=== PATIENT | female | born 1940 | race Caucasian/White ===

== ENCOUNTER 2016-12-22 15:47 | Inpatient (IN) | payer MEDICARE, MEDICAID ==
[~2016-12-22] VITALS: Ht 162.6 cm; Wt 47.5 kg
[~2016-12-22 15:47] MED LIST: ALEN70TA2 PO; ALPR0.254 PO; ATEN50TA PO; CHOL100045 PO; CLOP75TA3 PO; LIT300 PO; LOVA40TA PO; MIRT15TA6 PO; OMEP20CA11 PO; RISP1TAB90 PO; TRAM50TA2 PO
[2016-12-22 15:50] VITALS: BP 152/91; PULSE 88; RESP 16; O2SAT 97
--- NOTE | 2016-12-22 16:25 | ED.REPORT ---
HPI-Psychiatric Illness Date of Service Dec 22, 2016 ED Provider: Mela Ricardo History of Present Illness: have this bipolar, feels scared, maniac with very little sleep. Did well after last hospitalization. meds not working at this time. lives with son. here with sisters who live in concrete also c/o of left side abd pain for 3 days. Nursing Notes Stated Complaint: SEVERE AGITATION, BIPOLAR Chief Complaint: Psychiatric Complaint Nursing Notes Reviewed: Yes Allergies: Coded Allergies: No Known Allergies (Verified Allergy, Unknown, 12/22/16) Scheduled Alendronate Sodium (Fosamax) 70 Mg Tablet 70 MG PO Q Wednesday Alprazolam (Alprazolam) 0.25 Mg Tablet 0.5 MG PO BID Atenolol (Atenolol) 50 Mg Tablet 50 MG PO DAILY Cholecalciferol (Vitamin D3) (Vitamin D) 1,000 Unit Capsule 1,000 UNIT PO DAILY Clopidogrel Bisulfate (Plavix) 75 Mg Tablet 75 MG PO DAILY [employer] Carbonate ([employer] Carbonate) 300 Mg Cap 300 MG PO BID Lovastatin (Lovastatin) 40 Mg Tablet 40 MG PO HS Mirtazapine (Mirtazapine) 15 Mg Tablet 7.5 MG PO HS Omeprazole (Omeprazole) 20 Mg Capsule.dr 20 MG PO DAILY Risperidone (Risperdal) 1 Mg Tablet 0.25 MG PO HS Scheduled PRN Tramadol (Tramadol) 50 Mg Tablet 50 MG PO Q6 PRN PRN For Pain General Time Seen by MD: 16:19 Chief Complaint Anxious, Other (abd pain) Hx Obtained From: Patient Risk-Psychiatric Illness Suicide Risk Stratification Suicide Risk Factors - Adult: : Prior psych admissionNo: Access to firearms, Alcohol use, Close associate suicide, Family Hx of Suicide, Previous attempt, Substance abuse RF Statements: Risk factors reviewed Past Medical History Past Medical History Notes: bi polar Past Medical History Prediabetes Back pain Osteoporosis Allergic rhinitis Actinic keratosis CVD Bipolar disorder Parasomnia Hypertension Thrombocytosis Past Surgical History elbow surgery Reports: Hysterectomy Smoking History Never Smoker Social History Alcohol Use: Denies alcohol use Drug Use: Denies drug use Other Social History: Good social support, Lives with children Occupation lives with son. 12/22/2016 Ambulatory Status Independent Review of Systems Basic Review of Systems Eyes: Vision NL : No dysuria, No frequency Allergy / Immune: No allergy Physical Exam Initial Vital Signs Vital Signs (First) Date Time Temp Pulse Resp B/P Pulse Ox O2 Delivery O2 Flow Rate FiO2 12/22/16 15:50 36.9 88 16 152/91 97 Room Air Initial VS: Reviewed, Vital signs normal Head / Eyes: Atraumatic, Normocephalic, PERRL ENT: Mucous membranes moist, Conjunctiva normal, No scleral icterus Neck: Supple, Non-tender, Full range of motion Respiratory: Breath sounds normal, Clear to auscultation, No respiratory distress Cardiovascular: Regular rate & rhythm, Heart sounds normal, Intact distal pulses Abdomen / GI: Soft, Non-tender, No guarding, No rebound, No distention Back: No CVA tenderness Lymphatic: No lymphadenopathy Extremities: Vascular intact, Neuro intact, No swelling, No tenderness Skin: Warm, Dry, No cyanosis General/Constitutional: Awake, Alert, No acute distress, Well appearing, Well developed Appearance / Presentation: Positive: Appears older than age, Underweight Neurologic: Oriented X3, Speech NL patient with confusion at times Abnormal Mood/Affect: Positive: Fearful, Flat affect Head / Eyes: Atraumatic, Normocephalic, PERRL, EOMI Respiratory / Chest: Atraumatic, Breath sounds NL, Breath sounds = bilat, No respiratory distress Cardiovascular: Heart rate NL, Regular rhythm, Heart sounds NL, No gallop Tenderness/Guarding/Rebound: Positive: Guarding voluntary, Tender LLQ... ( Moderate) Bowel Sounds / Distention: Positive: Bowel sounds hypoactive Interpretation & Diagnostics Interpretation & Diagnostics: PROCEDURE: CT ABDOMEN AND PELVIS WITH CONTRAST ([id number]) INDICATIONS: left side abd pain, wbc of 23 TECHNIQUE: After the administration of oral and intravenous contrast, 5 mm thick sections acquired from the diaphragms to the symphysis. 5 mm thick coronal and sagittal reformats were performed. For radiation dose reduction, the following was used: automated exposure control, adjustment of mA and/or kV according to patient size. COMPARISON: [facility], CT, CT CHEST ABD PELVIS WO CON, 06/09/2016, 13:23. FINDINGS: Image quality: Excellent. ABDOMEN: Lung bases: Lung bases are clear. Heart size is normal. Solid organs: Liver and spleen are normal in size. There is a 50 mm diameter peripheral wedge-shaped low density focus within the posterior inferior spleen, which demonstrates peripheral enhancement. Gallbladder is within normal limits. Biliary system is non-dilated. Pancreas enhances normally. No adrenal nodules. Kidneys are normal in size and enhancement, without hydronephrosis. Peritoneum and bowel: Stomach and small bowel are within normal limits. Appendix is not seen. No evidence of appendicitis. Colon is decompressed. There is diverticulosis of the descending and sigmoid colon. There is moderate thickening of the proximal sigmoid colon. There is moderate fat stranding surrounding the proximal sigmoid colon. There is a 15 mm diameter region of intramural fluid and gas involving the anterior aspect of the proximal sigmoid colon. No free fluid or air. Nodes and vessels: No retroperitoneal or mesenteric adenopathy. Aorta and inferior vena cava are normal in caliber. Miscellaneous: No ventral hernias. PELVIS: Genitourinary: Bladder wall thickness is normal. Miscellaneous: No inguinal hernias or adenopathy. Bones: No suspicious bony lesions. No vertebral body compression fractures. IMPRESSION: 1. Diverticulitis of the proximal sigmoid colon. There is a 15 mm diameter intramural abscess versus fluid filled diverticulum within the proximal sigmoid colon. Conservative therapy with repeat imaging, if clinically warranted is recommended for further assessment. 2. Probable posterior inferior splenic infarct. However, given the peripheral enhancement, evolving abscess may also be present. Close clinical followup is recommended, with repeat imaging, if clinically warranted. Dictated by: Rolanda Hebert M.D. on 12/22/2016 at 20:43 Approved by: Rolanda Hebert M.D. on 12/22/2016 at 20:48 Lab Results Interpretation Result Diagram: 12/22/16 1700 12/22/16 1700 Test 12/22/16 17:00 12/22/16 17:27 12/22/16 17:47 White Blood Count 23.1th/mm3 (3.8-10.1) Red Blood Count 4.92mil/mm3 (3.90-5.20) Hemoglobin 14.4g/dL (12.0-15.6) Hematocrit 44.7% (35.0-46.0) Mean Corpuscular Volume 90.9fL (81-100) Mean Corpuscular Hemoglobin 29.3pg (27.0-35.0) Mean Corpuscular Hemoglobin Concent 32.2% (32.0-37.0) Red Cell Distribution Width 15.5% (12.3-15.4) Platelet Count 1022bil/L (150-400) Neutrophils (%) (Auto) 76% (40-74) Lymphocytes (%) (Auto) 14% (14-46) Monocytes (%) (Auto) 5% (4-12) Eosinophils (%) (Auto) 1% (0-5) Basophils (%) (Auto) 2% (0-3) Band Neutrophils % 2% (1-5) Sodium Level 137mEq/L (134-144) Potassium Level 4.6mEq/L (3.5-5.2) Chloride Level 101mEq/L (97-108) Carbon Dioxide Level 22mmol/L (18-29) Blood Urea Nitrogen 24mg/dL (8-27) Creatinine 0.89mg/dL (0.57-1.00) Estimat Glomerular Filtration Rate 89mL/min (>59) Glucose Level 117mg/dL (60-99) Lactic Acid Level 0.7mmol/L (0.4-2.0) Calcium Level 10.5mg/dL (8.5-10.1) Total Bilirubin 0.3mg/dL (0.0-1.2) Aspartate Amino Transf (AST/SGOT) 90U/L (0-50) Alanine Aminotransferase (ALT/SGPT) 82U/L (0-32) Alkaline Phosphatase 75U/L (25-165) Total Protein 7.7g/dL (6.4-8.4) Albumin 4.6g/dL (3.4-5.0) Thyroid Stimulating Hormone (TSH) 1.380uIU/mL (0.450-4.500) Hold Tse Top Tube Received (Received) Hold Urine Received (Received) Urine Color Yellow (YELLOW) Urine Appearance Clear (CLEAR,HAZY) Urine pH 5.5 (5.0-8.0) Urine Specific [place] 1.020 (1.003-1.035) Urine Protein Negativemg/dL (NEG,TRACE) Urine Glucose (UA) Negativemg/dL (NEGATIVE) Urine Ketones Negativemg/dL (NEGATIVE) Urine Occult Blood Small (NEGATIVE) Urine Nitrite Negative (NEGATIVE) Urine Bilirubin Negative (NEGATIVE) Urine Urobilinogen Normalmg/dL (NORMAL) Urine Leukocyte Esterase Negative (NEGATIVE) Urine RBC 3-10/hpf (0-2) Urine WBC 0-5/hpf (0-5) Urine Epithelial Cells Moderate/hpf (NONE-MOD) Urine Crystals None seen (NONE SEEN) Urine Bacteria Few/hpf (NONE-FEW) Urine Hyaline Casts None/lpf (NONE) Urine Granular Casts None seen (NONE SEEN) Urine Waxy Casts None seen (NONE SEEN) Urine Red Blood Cell Casts None seen (NONE SEEN) Urine White Blood Cell Casts None seen (NONE SEEN) Urine Mucus Present (None Seen) Urine Trichomonas None seen (NONE SEEN) Urine Yeast None (NONE SEEN) Urinalysis Comment None Urine Culture Reflexed Not indicated X-Ray Chest Interpretation Chest Xray Interpretation: ROCEDURE: X-RAY CHEST, TWO VIEWS ([id number]) INDICATIONS: altered mental status TECHNIQUE: 2 views of the chest were acquired. COMPARISON: [facility], CR, XR CHEST 2VW, 07/24/2016, 13:54. FINDINGS: Surgical changes and devices: None. Lungs and pleura: No pleural effusions or pneumothorax. Mild patchy opacity at the left lung base. Mediastinum: Mediastinal contours are normal. Heart size is normal. Bones and chest wall: No suspicious bony abnormalities. Soft tissues appear unremarkable. IMPRESSION: Mild left lung base pneumonia. Follow up plain films of the chest are recommended to ensure resolution, and to exclude underlying or central malignancy. Dictated by: Rolanda Hebert M.D. on 12/22/2016 at 18:21 Approved by: Rolanda Hebert M.D. on 12/22/2016 at 18:21 CT Head Interpretation PROCEDURE: CT BRAIN WITHOUT CONTRAST ([id number]) INDICATIONS: alter mental status wbc 23 TECHNIQUE: Noncontrast 4.5 mm thick angled axial sections acquired from the foramen magnum to the vertex, with coronal reformats. COMPARISON: [facility], CT, CT BRAIN WO CON, 05/20/2016, 12:28. FINDINGS: Image quality: Excellent. CSF spaces: Basal cisterns are patent. No extra-axial fluid collections. The ventricles are symmetric in size and shape. Brain: No intracranial bleeds or masses. Moderate left anterolateral frontal lobe infarct is unchanged. There is cerebral volume loss for age, with resultant ventricular and sulcal prominence. There are periventricular and deep white matter chronic small vessel ischemic changes. There is intracranial internal carotid artery atherosclerosis. Skull and face: Calvarium and visualized facial bones appear intact, without suspicious lesions. Sinuses: Visualized sinuses and mastoids are clear. IMPRESSION: 1. No acute intracranial abnormality. 2. No change in chronic left frontal infarct. Dictated by: Rolanda Hebert M.D. on 12/22/2016 at 18:00 Approved by: Rolanda Hebert M.D. on 12/22/2016 at 18:00 Re-Eval/Medical Decision Med Decision/Clinical Course 76 year old female presents with her sisters for evualation of mental health issues and left abd pain. White count of 23. CT shows divertulitis Care of patient turned over to Dr. Salazar Discharge & Departure Impression: Primary Impression: Diverticulitis Diverticulitis site: large intestine Diverticulitis complication: with abscess Disposition: ADMITTED TO HOSPITAL Referrals: Ga Mills MD (PCP) EDSupervising Provider for APC: Ramiro Salazar MD copies to: Ga Mills MD, Sue ARNP Dec 22, 2016 16:25
[2016-12-22 17:38] LABS: Mean Corpuscular Hemoglobin 29.3 pg (27.0-35.0); Mean Corpuscular Volume 90.9 fL (81-100)
[2016-12-22 17:39] LABS: BASOPHILS % (AUTO) 2 % (0-3); EOSINOPHILS % (AUTO) 1 % (0-5); MONOCYTES % (AUTO) 5 % (4-12); NEUTROPHILS % (AUTO) 76 % (40-74)
[2016-12-22 17:41] LABS: Platelet Count 1022 bil/L (150-400)
[2016-12-22] MEDS ORDERED: 0.9% Sodium Chloride 1,000 ML IV ONE (17:50)
--- NOTE | 2016-12-22 18:02 | DRSVH ---
PROCEDURE: CT BRAIN WITHOUT CONTRAST ([id number]) INDICATIONS: alter mental status wbc 23 TECHNIQUE: Noncontrast 4.5 mm thick angled axial sections acquired from the foramen magnum to the vertex, with c oronal reformats. COMPARISON: [facility], CT, CT BRAIN WO CON, 05/20/2016, 12:28. FINDINGS: Image quality: Excellent. CSF spaces: Basal cisterns are patent. No extra-axial fluid collections. The ventricles are symmet luiz in size and shape. Brain: No intracranial bleeds or masses. Moderate left anterolateral frontal lobe infarct is unchan ged. There is cerebral volume loss for age, with resultant ventricular and sulcal prominence. There are periventricular and deep white matter chronic small vessel ischemic changes. There is intracrani al internal carotid artery atherosclerosis. Skull and face: Calvarium and visualized facial bones appear intact, without suspicious lesions. Sinuses: Visualized sinuses and mastoids are clear. IMPRESSION: 1. No acute intracranial abnormality. 2. No change in chronic left frontal infarct. Dictated by: Rolanda Hebert M.D. on 12/22/2016 at 18:00 Approved by: Rolanda Hebert M.D. on 12/22/2016 at 18:00
[2016-12-22 18:11] LABS: COLOR,URINE YELLOW (YELLOW)
[2016-12-22 18:12] LABS: APPEARANCE,URINE CLEAR (CLEAR,HAZY); OCCULT BLOOD,URINE SMALL (NEGATIVE); PH,URINE 5.5 (5.0-8.0); UROBILINOGEN,URINE NORMAL (NORMAL)
--- NOTE | 2016-12-22 18:22 | DRSVH ---
PROCEDURE: X-RAY CHEST, TWO VIEWS ([id number]) INDICATIONS: altered mental status TECHNIQUE: 2 views of the chest were acquired. COMPARISON: [facility], CR, XR CHEST 2VW, 07/24/2016, 13:54. FINDINGS: Surgical changes and devices: None. Lungs and pleura: No pleural effusions or pneumothorax. Mild patchy opacity at the left lung base. Mediastinum: Mediastinal contours are normal. Heart size is normal. Bones and chest wall: No suspicious bony abnormalities. Soft tissues appear unremarkable. IMPRESSION: Mild left lung base pneumonia. Follow up plain films of the chest are recommended to ensu re resolution, and to exclude underlying or central malignancy. Dictated by: Rolanda Hebert M.D. on 12/22/2016 at 18:21 Approved by: Rolanda Hebert M.D. on 12/22/2016 at 18:21
[2016-12-22 18:40] VITALS: BP 118/74; PULSE 74; RESP 14; O2SAT 96
[2016-12-22] MEDS ORDERED: Iohexol 300 mg/mL 30 mL Inj PO ONE (19:05)
--- NOTE | 2016-12-22 20:50 | DRSVH ---
PROCEDURE: CT ABDOMEN AND PELVIS WITH CONTRAST ([id number]) INDICATIONS: left side abd pain, wbc of 23 TECHNIQUE: After the administration of oral and intravenous contrast, 5 mm thick sections acquired from the diap hragms to the symphysis. 5 mm thick coronal and sagittal reformats were performed. For radiation do se reduction, the following was used: automated exposure control, adjustment of mA and/or kV accordi ng to patient size. COMPARISON: [facility], CT, CT CHEST ABD PELVIS WO CON, 06/09/2016, 13:23. FINDINGS: Image quality: Excellent. ABDOMEN: Lung bases: Lung bases are clear. Heart size is normal. Solid organs: Liver and spleen are normal in size. There is a 50 mm diameter peripheral wedge-shaped low density focus within the posterior inferior spleen, which demonstrates peripheral enhancement. G allbladder is within normal limits. Biliary system is non-dilated. Pancreas enhances normally. No adrenal nodules. Kidneys are normal in size and enhancement, without hydronephrosis. Peritoneum and bowel: Stomach and small bowel are within normal limits. Appendix is not seen. No santana dence of appendicitis. Colon is decompressed. There is diverticulosis of the descending and sigmoid c olon. There is moderate thickening of the proximal sigmoid colon. There is moderate fat stranding mila rounding the proximal sigmoid colon. There is a 15 mm diameter region of intramural fluid and gas inv olving the anterior aspect of the proximal sigmoid colon. No free fluid or air. Nodes and vessels: No retroperitoneal or mesenteric adenopathy. Aorta and inferior vena cava are no rmal in caliber. Miscellaneous: No ventral hernias. PELVIS: Genitourinary: Bladder wall thickness is normal. Miscellaneous: No inguinal hernias or adenopathy. Bones: No suspicious bony lesions. No vertebral body compression fractures. IMPRESSION: 1. Diverticulitis of the proximal sigmoid colon. There is a 15 mm diameter intramural abscess versus fluid filled diverticulum within the proximal sigmoid colon. Conservative therapy with repeat imaging , if clinically warranted is recommended for further assessment. 2. Probable posterior inferior splenic infarct. However, given the peripheral enhancement, evolving a bscess may also be present. Close clinical followup is recommended, with repeat imaging, if clinicall y warranted. Dictated by: Rolanda Hebert M.D. on 12/22/2016 at 20:43 Approved by: Rolanda Hebert M.D. on 12/22/2016 at 20:48
[2016-12-22] MEDS ORDERED: metroNIDAZOLE Inj 500 MG in IV Premix 1 EACH IV ONE (21:05)
[2016-12-22] MEDS ORDERED: Piperacillin-Tazo 3.375 Gm Inj 3.375 GM in Dextrose 5% Minibag Plus 50 ML IV ONE (21:05)
[2016-12-22] MEDS ORDERED: ALPR0.5T8 PO ×2 (22:01→22:04)
[2016-12-22] MEDS ORDERED: MIRT7.5T8 PO (22:04)
[2016-12-22] MEDS ORDERED: Ondansetron 2 mg/mL 2 mL Inj IVPUSH PRN (22:05)
[2016-12-22] MEDS ORDERED: Alum-Mag Hydrox-Simeth 30 mL Suspension PO PRN (22:05)
[2016-12-22] MEDS ORDERED: Polyethylene Glycol (PEG) 17 Gm Powder PO PRN (22:05)
--- NOTE | 2016-12-22 22:14 | PCM.HPMED ---
Subjective Date of Service Dec 22, 2016 Primary Provider: Admitting Physician: Primary Care Physician: Ga Mills MD Attending Physician: Admit Status: From the Emergency Department, Remote Telemetry Chief Complaint: Episodes of mariaa, left lower quadrant abdominal pain History of Present Illness: Ms. Perez is a pleasant 76-year-old female with history of bipolar disorder on long-term lithium use, thrombocytosis, and hypertension, that presented to [facility] with a 3 week history of increased insomnia, mariaa, and irritability, in addition to a three-day history of left lower quadrant abdominal pain without associated fever, chills, nausea, vomiting. She was noted to have an elevated white count in the ED, stat CT imaging revealed diverticulitis of the proximal sigmoid colon. She was admitted for evaluation and treatment of ongoing psychiatric issues, and addition to antibiotic therapy to address her diverticulitis. Hospital day 1 Ms. Perez's family is present at bedside, and note that the patient has been irritable, sleepless, and experiencing a mariaa episode over the recent 3 weeks. The patient states that her family brought her in with concerns of her psychiatric health. Patient states she has been increasingly anxious over the recent weeks. She denies any fever, chills, nausea, vomiting, diarrhea, constipation, blood within her stools or urine, shortness of breath, palpitations. She does note a few days prior to admission, she was experiencing constipation, of which, she took [id number] laxatives for therapy. She shares that she has been experiencing left lower quadrant abdominal pain over the recent 3 days prior to this admission, with pain extending to her left lower back. She does state she has a history of diverticulitis many years ago, but did not require hospitalization. Other than her bipolar disorder, she reports she is in relatively good health for her age, and is able to do most activities on her own without assistance. In regard to her psychiatric issue, she was recently seen at [facility] June 2016 under the care of Dr. Owens. Patient and family confirm that patient has been compliant with her medications, has not run out of any medications, and is adhered to the original schedule. In the ED, T 36.9, pulse 88, respiratory rate 16, pressure 152/91, 97% on room air; initial labs revealed WBC 23.1 with 76 neut, hemoglobin 14.4, platelets 1022; sodium 137, potassium 4.6, creatinine 0.89, lactic acid 0.7, AST 90 ALT 82 ; lithium level obtained 0.6; UA obtained which revealed small occult blood, negative leukocyte esterase and negative nitrites, moderate epithelial cells were noted with few bacteria. Blood cultures were also obtained and sent to lab. 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 ; CT abdomen and pelvis with contrast revealed a normal appearing liver and spleen, no evidence cholecystitis, no evidence of appendicitis, diverticulosis was noted of the descending and sigmoid colon with moderate thickening of the proximal sigmoid colon and associated moderate fat stranding surrounding the proximal sigmoid colon, in addition there was a 15 mm diameter region of intramural fluid and gas involving the anterior aspect of the proximal sigmoid colon, all of these findings were suggestive of diverticulitis, and other finding included probable posterior inferior splenic infarct but this was also thought to be evidence of an evolving abscess. Initial therapies included Zosyn and Flagyl, in addition to Ativan 1 L bolus normal saline. Patient was seen in the emergency department in stable condition awaiting transfer to floor. Review of Systems: Complete our was obtained; pertinent positives and negatives as noted above Allergies Coded Allergies: No Known Allergies (Verified Allergy, Unknown, 12/22/16) Home Medications Medications list provided by patient and family: Alendronate 70 mg weekly Alprazolam 0.5 mg twice daily scheduled, with approved third dose if needed for increased anxiety Atenolol 50 mg daily Plavix 75 mg daily [place] 300 mg twice daily Lovastatin 40 mg nightly Mirtazapine 7.5 mg at bedtime Risperidone 0.25 mg at bedtime Tramadol 50 mg every 6 hours as needed Vitamin D3 These medications will be continued at this time until evaluation by psychiatric service PMH Prediabetes Back pain Osteoporosis Allergic rhinitis Actinic keratosis CVD Bipolar disorder Parasomnia Hypertension Thrombocytosis Surgical History elbow surgery Reports: Hysterectomy Family History She notes that her brother had an intracranial bleed Social History Hx Alcohol Use: No Hx Substance Use: No Hx Tobacco Use: No Smoking Status: Never Smoker Living Arrangement: with Family Exam Vital Signs Vital Sign - Last Date Time Temp Pulse Resp B/P Pulse Ox O2 Delivery O2 Flow Rate FiO2 12/22/16 18:40 74 14 118/74 96 Room Air 12/22/16 15:50 36.9 Exam General: Alert and oriented 3, no acute distress; cooperative and pleasant HEENT: Atraumatic, sclera anicteric, no conjunctival hemorrhage or pallor, mucous membranes moist Cardiac: Regular rate and rhythm at time of examination; no appreciable murmurs Respiratory: Adequate airflow all jimenez, no wheeze or rhonchi appreciated Abdomen: Soft, nondistended; tenderness appreciated left lower quadrant with radiation to left flank; no epigastric, left upper quadrant, right-sided abdominal pain appreciated Skin: Warm and dry MSK: Able to move 44 extremities against gravity well; no assistance required Extremities: No edema appreciated Neuro: Cranial nerves II through XII grossly intact, facial expressions equal and symmetric; speech without slurring Psych: Appropriate mood, affect, and response to questioning; patient was quite pleasant and calm at time of evaluation Lab and Diagnostics Result Diagram: 12/22/16169912/22/161699 Assessment & Plan Ms. Perez is a pleasant 76-year-old female with history of bipolar disorder on long-term lithium use, thrombocytosis, and hypertension, that presented to [facility] with a 3 week history of increased insomnia, mariaa, and irritability, in addition to a three-day history of left lower quadrant abdominal pain without associated fever, chills, nausea, vomiting. She was noted to have an elevated white count in the ED, stat CT imaging revealed diverticulitis of the proximal sigmoid colon. She was admitted for evaluation and treatment of ongoing psychiatric issues, and addition to antibiotic therapy to address her diverticulitis. Hospital day 1 Diverticulitis, acute, present on admission. Under therapy - Afebrile; patient reports left lower quadrant pain in addition to WBC 23.1 on admit - CT findings suggestive of diverticulitis - In the ED, given Zosyn and Flagyl - Continue Zosyn as sole agent at this time - Monitor; consider surgical consultation if no improvement Thrombocytosis, chronic, present on admission. 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 Presumed unstable - [place] level on admit: 0.6; no evidence of kidney disease based on labs on admission - Patient and family report recent increase in mariaa symptoms over recent 3 weeks - Consider psychiatric consultation in morning/as patient stabilizes medically, as it is psychiatric concerns that brought patient into the hospital initially - We will continue current psychiatric medications at this time Hypertension, chronic. Presumed stable Continue home medications Osteoporosis, chronic. Presumed stable - Patient on weekly alendronate schedule When necessary: Fever/pain/nausea/bowel DVT: SCDs only at this time GI: PPI Diet: Liquids at this time CODE STATUS: Full code Patient status: Due to severity of presenting symptoms, risk of adverse events, and likely course of care, anticipated length of stay exceeds 2 midnights; patient admitted as inpatient status Pain Evaluation: Adequate Pain Control GI Prophylaxis: Proton Pump Inhibitor VTE Prophylaxis: SCDs Resuscitation Status: CPR: Attempt Resuscitation Attending Statement The patient was seen and examined together with Dr. García on 12/22 and I agree with the history, exam and plan as outlined in the note above. Marina García DO Dec 22, 2016 22:13 Ignacio Norman MD Dec 23, 2016 01:30
[2016-12-22] MEDS ORDERED: ALPRAZolam 0.5 mg Tablet PO PRN (22:30)
[2016-12-22] MEDS ORDERED: risperiDONE 1 mg Tablet PO ONE (22:30)
[2016-12-23] VITALS (7 sets, daily range): BP systolic 94–158; BP diastolic 59–93; PULSE 63–80; RESP 16–20; O2SAT 93–97
[2016-12-23] MEDS: ALPRAZolam 0.5 mg Tablet PO SCH ×3 (00:40→20:51)
[2016-12-23] MEDS: 0.9% Sodium Chloride 1,000 ML IV SCH ×3 (00:40→17:20)
--- NOTE | 2016-12-23 00:57 | NUR ---
Admission Pt pleasant and cooperative. C/o left lower abdominal pain rated at a 4 "If I push on it". Refuses tylenol for pain and states, "I'm fine". C/O being cold. Anxious about not "sleeping" Given warm blankets. Given evening scheduled medication. KAJAL alarm on for safety. Will cont to monitor
[2016-12-23] MEDS: Pantoprazole 20 mg ER24 Tablet PO SCH (06:39)
[2016-12-23 07:16] LABS: BASOPHILS % (AUTO) 0.4 % (0-3); EOSINOPHILS % (AUTO) 1.4 % (0-5); MONOCYTES % (AUTO) 10.6 % (4-12); Mean Corpuscular Hemoglobin 29.5 pg (27.0-35.0); Mean Corpuscular Volume 91.6 fL (81-100); NEUTROPHILS % (AUTO) 71.1 % (40-74); Platelet Count 838 bil/L (150-400)
[2016-12-23] MEDS: Piperacillin-Tazo 3.375 Gm Inj 3.375 GM in Dextrose 5% Minibag Plus 50 ML IV SCH ×2 (07:52→17:17)
[2016-12-23 08:08] LABS: Magnesium 2.2 mg/dL (1.6-2.6); Phosphorus 3.7 mg/dL (2.5-4.9)
--- NOTE | 2016-12-23 14:08 | NUR ---
Social Work-initial assessment: Data:See initial assessment. Pt is a 76 y/o female who was admitted on 12/22/16 for diverticulitis per H&P. Pt's insurance is [employer] and [facility] and PCP is Ga Mills MD. EMR reviewed. SW met with pt at bedside to discuss discharge planning, SW role explained. Pt is alert and oriented x3. Pt resides at home with her son Alcon where she remains independent with ADLs. Pt does not use any DME and drives. Pt has no HH or SNF history. Pt has no [facility] care insurance or VA benefits. SW discussed DPOA/ advanced directive and pt confirms this has been completed. Pt has [facility] and her CM is Marlo Salinas, SW spoke with Marlo who confirms pt has 76 hours a month, updated clinicals faxed. Pt states she is not enrolled with a counselor or a community psychiatrist. Pt states her PCP prescribes her psych medications and she takes them regularly. Pt states lately she has been feeling more anxious and hopes she will get to see the psychiatrist here at the hospital. SW explained that MD state she is going to put in a consult. Pt denies any current suicide ideation and states she does not believe in suicide due to her cheondoism rhiannon. Pt's son to provide transport home. SW provided phone number and plan on white board in room. SW will continue to follow. Assessment:Pt who is independent at baseline. Plan:Pt to discharge home when medically stable. Pt to continue with [facility] caregiving. Psychiatry consult is pending. SW to follow up post evaluation for any discharge needs. SW will continue to follow. HERMILA Franklin Addendum: 12/23/16 at 1417 by ROGELIO LEWIS Amended: Links added.
--- NOTE | 2016-12-23 15:08 | PCM.PNMED ---
Subjective Date of Service Dec 23, 2016 Subjective Denies any new issues/complaints. Continued left lower abdominal pain Exam Vital Signs Vital Sign - Last Date Time Temp Pulse Resp B/P Pulse Ox O2 Delivery O2 Flow Rate FiO2 12/23/16 11:53 36.7 63 18 108/70 96 Room Air Intake and Output 12/22/16 12/22/16 12/23/16 Cumulative From/Thru 15:00 23:00 07:00 12/22/16 15:50 - 12/23/16 06:00 Intake Total 638 ml 638 ml Output Total 620 ml 620 ml Balance 18 ml 18 ml Intake Oral 200 ml 200 ml IV Total 438 ml 438 ml Output Urine Total 620 ml 620 ml General: Alert, Cooperative, No Acute Distress Eyes: Scleral Anicteric Nose: Mucous Membr Moist/[place] Mouth: Mucous Membr Moist/[place] Neck: Supple Chest & Lungs: Chest Wall Normal, Clear to auscultation & percussion Cardiovascular: Regular Rate/Rhythm Abdomen: Tender (at left lower abd), Non-distended, Soft Extremities: No cyanosis/clubbing/edma bilat Neurological: Grossly Neurologically Intact, Cranial Nerves 2-12 Intact, Normal Speech Additional Information: Psych: appropriate affect IVs and Medications Medications Reviewed: Medications were reviewed in detail Lab and Diagnostics Result Diagram: 12/23/16 0659 12/23/16 0659 Assessment & Plan 76-year-old female with history of bipolar disorder on long-term lithium use, thrombocytosis, and hypertension, that presented to [facility] with a 3 week history of increased insomnia, mariaa, and irritability, in addition to a three-day history of left lower quadrant abdominal pain without associated fever, chills, nausea, vomiting. She was noted to have an elevated white count in the ED, stat CT imaging revealed diverticulitis of the proximal sigmoid colon. # Diverticulitis, acute, present on admission. Under therapy - CT abd: "Diverticulitis of the proximal sigmoid colon. There is a 15 mm diameter intramural abscess versus fluid filled diverticulum within the proximal sigmoid colon. Conservative therapy with repeat imaging, if clinically warranted is recommended for further assessment." - In the ED, given Zosyn and Flagyl - Continue Zosyn as sole agent at this time - Monitor; consider surgical consultation if no improvement # CT Abdomen also showing: "Probable posterior inferior splenic infarct. However , given the peripheral enhancement, evolving abscess may also be present. Close clinical followup is recommended, with repeat imaging, if clinically warranted. " # Thrombocytosis, acute on chronic, present on admission. 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 Presumed unstable - [place] level on admit: 0.6; no evidence of kidney disease based on labs on admission - Patient and family report recent increase in mariaa symptoms over recent 3 weeks - Consult psychiatry - We will continue current psychiatric medications at this time # Hypertension, chronic. stable - Continue home medications # Osteoporosis, chronic. Presumed stable - Patient on weekly alendronate schedule Dispo: 2-4 days GI Prophylaxis: Proton Pump Inhibitor VTE Prophylaxis: SCDs VTE Mechanical Devices: Intermittant Pneumatic CD Resuscitation Status: CPR: Attempt Resuscitation Cecil Cantu Dec 23, 2016 15:08
[2016-12-23] MEDS: risperiDONE 1 mg Tablet PO SCH (20:51)
[2016-12-24] MEDS: Piperacillin-Tazo 3.375 Gm Inj 3.375 GM in Dextrose 5% Minibag Plus 50 ML IV SCH ×3 (01:31→17:03)
[2016-12-24] MEDS: 0.9% Sodium Chloride 1,000 ML IV SCH ×2 (04:01→14:01)
[2016-12-24 05:20] VITALS: BP 115/73; PULSE 71; RESP 16; O2SAT 95
[2016-12-24] MEDS: Pantoprazole 20 mg ER24 Tablet PO SCH (05:53)
[2016-12-24 06:09] LABS: BASOPHILS % (AUTO) 0.6 % (0-3); EOSINOPHILS % (AUTO) 2.6 % (0-5); MONOCYTES % (AUTO) 10.2 % (4-12); Mean Corpuscular Hemoglobin 29.7 pg (27.0-35.0); Mean Corpuscular Volume 92.4 fL (81-100); NEUTROPHILS % (AUTO) 63.3 % (40-74); Platelet Count 881 bil/L (150-400)
--- NOTE | 2016-12-24 07:26 | NUR ---
Abdominal pain Patient continues to have diarrhea this shift. Patient states her left side abdominal pain has increased slightly this shift and was given Tramadol for pain. Patient stated she has anxiety about being closed off in her room. Curtains were opened and patient was told that we would take her for a walk later in the shift. Patient stated that she appreciated these efforts, but changed her mind about the walk after taking her evening medications. Patient up independent in room. Vitals stable.
[2016-12-24] MEDS: ALPRAZolam 0.5 mg Tablet PO SCH (09:09)
[2016-12-24 09:25] VITALS: BP 123/76; PULSE 84; RESP 18; O2SAT 96
--- NOTE | 2016-12-24 11:59 | NUR ---
Nausea / Anxiety Pt c/o nausea at the beginning of the shift today; no vomiting. Administered 4 mg IVP Zofran. Pt later reported that this helped; nausea resolved. Pt also was feeling anxious this a.m. She has many thoughts and worries running through her head (her health, her family). She has expressed concern about her mental health and wonders if psychological counseling would help her. Hospitalist has requested a psychological consult. Advised pt of this and also administered her scheduled Xanax. Pt later reported that the Xanax helped reduce her anxiety. Also assisted pt in ambulating in the hallway. Pt said this made her feel better. Care continues.
[2016-12-24 12:11] VITALS: BP 135/80; PULSE 74; RESP 18; O2SAT 97
--- NOTE | 2016-12-24 15:06 | CONS ---
[address] [address] CONSULTATION REPORT PATIENT: ALEC STRATTON : 1940 MR#: [id number] ADMIT: 12/22/2016 JOB ID: [id number] DATE OF SERVICE: IDENTIFICATION OF PATIENT: The patient is a 76-year-old female who reportedly was admitted with acute diverticulosis, with noted previous history of bipolar disorder, recent hospitalization to the mental health unit in June 2016. Per family report, the patient has had increasing difficulties with possible mariaa over the past month, and I had met and confirmed with both sisters. CHIEF COMPLAINT: "I have not felt as good and know that there is something that is off." This is per patient report. HISTORY OF PRESENT ILLNESS: As stated above, the patient identified that over the past month she has been experiencing difficulties with perseverative thoughts, difficulties with rigid thinking, agitation, some difficulties with overwhelming sensations, racing thoughts and panic. She identifies that she has not been sleeping more than 2-3 hours per night. Per family report, they have expressed significant concern of recent decompensation over the past month as well. They indicated that she just has not been following or tracking information. I have reviewed documentation from her previous hospitalization in June with noted diagnoses including bipolar disorder, most recent episode depressed, rule out vascular dementia. She reportedly was discharged at that time on: 1. [place] carbonate ER 300 mg b.i.d. 2. Xanax 0.5 mg b.i.d. 3. Remeron 7.5 mg q.h.s., with a lithium level at 0.9. I have reviewed documentation of current including a lithium level of 0.6 with current administration of: 1. [place]ow carbonate standard. 2. Current administration of similar doses of: a. Risperdal 0.25 mg q.h.s. b. Xanax 0.5 mg b.i.d. c. Remeron 7.5 mg at h.s. Discussed possibility of transitioning of lithium as a causative factor in her current presentation and do feel that the patient warrants an extended release mechanism for stabilization. In addition, I have discussed a possible initiation of Klonopin versus Xanax due to longevity of response, and the patient is open to such. PAST MEDICAL HISTORY: Noted for current presentation of diverticulosis, significant history of hypertension. Other medical history is referred to the Hospitalist team. PAST PSYCHIATRIC HISTORY: Noted for a long-term history of bipolar disorder. Most recent hospitalization in June 2016. SOCIAL HISTORY: Currently, the patient lives in a trailer with her son who also suffers from mental illness per report. She denies any recent usage of alcohol substances. FAMILY HISTORY: Deferred. DEVELOPMENT HISTORY: Deferred. MENTAL STATUS EXAMINATION: General appearance, the patient is bright, cooperative, interactive. She maintains good eye contact throughout. She apologizes throughout the course of conversation. Her speech is of normal tone, frequency and volume. Her mood is anxious. Affect is elevated. Her thought process shows evidence of some racing thoughts, loose and disconnected thinking. Thought content, she denied any evidence of current suicidal or homicidal ideation. No evidence of active hallucinations or delusions. She was alert, oriented to time and place. Attention and concentration are poor. Insight and judgment are poor. IMPRESSIONS: AXIS I 1. Bipolar disorder, most recent episode manic. 2. Rule out dementia, not otherwise specified. AXIS II Deferred. AXIS III Deferred to the Hospitalist team. AXIS IV Stressors are noted for recent life transition. AXIS V Global Assessment of Functioning current 45. PLAN: 1. Recommendation is for discontinuation of doses of Xanax with alternative institution of Klonopin 1 mg b.i.d. If the patient does have significant adverse side effects including sedation or orthostasis, decreasing dose further to 0.5 mg b.i.d. would be thakkar. 2. Recommendation is for change of format of lithium to lithium ER versus standard due to depressed levels of 0.9 to 0.6. 3. Continuation of Risperdal 0.25 mg q.h.s. and dose of Remeron 7.5 mg q.h.s. 4. Recommendation is for strong encouragement of further psychiatric followup. Will be discussed with the family. I do feel that the patient does warrant psychiatric prescriber intervention versus primary care, if available.
--- NOTE | 2016-12-24 15:21 | PCM.PNMED ---
Subjective Date of Service Dec 24, 2016 Subjective Denies any new issues/complaints. left lower abdominal pain improving Exam Vital Signs Vital Sign - Last Date Time Temp Pulse Resp B/P Pulse Ox O2 Delivery O2 Flow Rate FiO2 12/24/16 12:11 36.7 74 18 135/80 97 Room Air Intake and Output 12/23/16 12/23/16 12/24/16 Cumulative From/Thru 15:00 23:00 07:00 12/22/16 15:50 - 12/24/16 06:51 Intake Total 762 ml 876 ml 400 ml 2676 ml Output Total 1900 ml 600 ml 3120 ml Balance 762 ml -1024 ml -200 ml -444 ml Intake Oral 876 ml 400 ml 1476 ml IV Total 762 ml 1200 ml Output Urine Total 1900 ml 600 ml 3120 ml # Bowel Movements 2 2 4 Exam General: Alert, Cooperative, No Acute Distress Eyes: Scleral Anicteric Nose: Mucous Membr Moist/[place] Mouth: Mucous Membr Moist/[place] Neck: Supple Chest & Lungs: Chest Wall Normal, Clear to auscultation bilat Cardiovascular: Regular Rate/Rhythm Abdomen: Tender (mild and at left lower abd), Non-distended, Soft Extremities: No cyanosis/clubbing/edema bilat Neurological: Grossly Neurologically Intact, Cranial Nerves 2-12 Intact, Normal Speech Psych: appropriate affect IVs and Medications Medications Reviewed: Medications were reviewed in detail Lab and Diagnostics Result Diagram: 12/24/16 0505 12/24/16 0505 Assessment & Plan 76-year-old female with history of bipolar disorder on long-term lithium use, thrombocytosis, and hypertension, that presented to [facility] with a 3 week history of increased insomnia, mariaa, and irritability, in addition to a three-day history of left lower quadrant abdominal pain without associated fever, chills, nausea, vomiting. She was noted to have an elevated white count in the ED, stat CT imaging revealed diverticulitis of the proximal sigmoid colon. # Diverticulitis, acute, present on admission. Under therapy - CT abd: "Diverticulitis of the proximal sigmoid colon. There is a 15 mm diameter intramural abscess versus fluid filled diverticulum within the proximal sigmoid colon. Conservative therapy with repeat imaging, if clinically warranted is recommended for further assessment." - In the ED, given Zosyn and Flagyl - Continue Zosyn as sole agent at this time - Monitor; consider surgical consultation if no improvement # CT Abdomen also showing: "Probable posterior inferior splenic infarct. However , given the peripheral enhancement, evolving abscess may also be present. Close clinical followup is recommended, with repeat imaging, if clinically warranted. " # Thrombocytosis, acute on chronic, present on admission. 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 Presumed unstable - [place] level on admit: 0.6; no evidence of kidney disease based on labs on admission - Patient and family report recent increase in mariaa symptoms over recent 3 weeks - Consulted psychiatry. Will followup with recommendations. # Hypertension, chronic. stable - Continue home medications # Osteoporosis, chronic. Presumed stable - Patient on weekly alendronate schedule Dispo: 2-3 days GI Prophylaxis: Proton Pump Inhibitor VTE Prophylaxis: SCDs VTE Mechanical Devices: Intermittant Pneumatic CD Resuscitation Status: CPR: Attempt Resuscitation Cecil Cantu Dec 24, 2016 15:21
[2016-12-24 21:05] VITALS: BP 133/80; PULSE 78; RESP 16; O2SAT 95
[2016-12-24] MEDS: risperiDONE 1 mg Tablet PO SCH (21:21)
[2016-12-25 00:55] VITALS: BP 136/80; PULSE 65; RESP 16; O2SAT 98
[2016-12-25] MEDS: 0.9% Sodium Chloride 1,000 ML IV SCH ×3 (01:12→20:01)
[2016-12-25] MEDS: Piperacillin-Tazo 3.375 Gm Inj 3.375 GM in Dextrose 5% Minibag Plus 50 ML IV SCH ×3 (01:12→20:40)
--- NOTE | 2016-12-25 04:02 | NUR ---
Anxiety Pt had several episodes of increased anxiety, med changes made during day providing some relief. Pt does not feel that her anxiety is well managed and thinks an increase in clonazapam may be helpful, also hopes to speak with psych Md again. Throughout night pt responded well to supportive care, warm blankets, verbal reassurances of continued effort to alleviate her concerns in am. Observed with fractured sleep, 1-2 hours at a time. Hourly rounding ongoing.
[2016-12-25 05:10] VITALS: BP 111/68; PULSE 72; RESP 16; O2SAT 95
[2016-12-25] MEDS: Pantoprazole 20 mg ER24 Tablet PO SCH (05:43)
[2016-12-25 08:20] VITALS: BP 130/73; PULSE 86; RESP 16; O2SAT 96
--- NOTE | 2016-12-25 12:04 | PCM.PNMED ---
Subjective Date of Service Dec 25, 2016 Subjective Patient seen and examined. Eating well without any further abdominal pain. No fever or chills. No nausea or vomiting. Feels her bipolar is under control with the medications currently Exam Vital Signs Vital Sign - Last Date Time Temp Pulse Resp B/P Pulse Ox O2 Delivery O2 Flow Rate FiO2 12/25/16 08:20 36.9 86 16 130/73 96 Room Air Intake and Output 12/24/16 12/24/16 12/25/16 Cumulative From/Thru 15:00 23:00 07:00 12/22/16 15:50 - 12/25/16 06:49 Intake Total 251 ml 1240 ml 824 ml 4991 ml Output Total 2150 ml 1200 ml 6470 ml Balance 251 ml -910 ml -376 ml -1479 ml Intake Oral 1240 ml 200 ml 2916 ml IV Total 251 ml 624 ml 2075 ml Output Urine Total 2150 ml 1200 ml 6470 ml # Bowel Movements 2 6 Exam General: Alert, Oriented X3, Cooperative, No acute Distress Eyes: PERRLA, Scleral Anicteric Mouth: Mouth Normal, Mucous Membranes Moist/[place] Neck: Supple, no Thyromegaly, trachea central. Chest & Lungs: Clear to auscultation & percussion, No adventitious breath sounds, no crackles, no wheeze Cardiovascular: Normal S1, Normal S2, No Murmurs/Rubs/Gallops, Regular Rate/ Rhythm, Pulses: Radial (present and equal), Dorsalis Pedi (present and equal) Abdomen: Soft, Non-tender, Non-distended, Normoactive bowel tones. Musculoskeletal: Unremarkable. Normal range of motion, no swollen or erythematous joints Extremities: No edema, no cyanosis, no clubbing. Skin: No rashes. Warm and dry, no erythematous areas Neurological: Grossly neurologically intact, Normal Speech, Sensation Intact Lymphatic: Lymph nodes Cervical and Axillary not palpable. IVs and Medications Medications Reviewed: Medications were reviewed in detail Lab and Diagnostics Microbiology 12/22/16 Blood Culture - Preliminary, Resulted No growth at 2 days; culture examined... Result Diagram: 12/24/16 0505 12/24/16 0503 Assessment & Plan 76-year-old female with history of bipolar disorder on long-term lithium use, thrombocytosis, and hypertension, that presented to [facility] with a 3 week history of increased insomnia, mariaa, and irritability, in addition to a three-day history of left lower quadrant abdominal pain without associated fever, chills, nausea, vomiting. She was noted to have an elevated white count in the ED, stat CT imaging revealed diverticulitis of the proximal sigmoid colon. 1 Diverticulitis, acute, present on admission. Under therapy, resolving - CT abd: "Diverticulitis of the proximal sigmoid colon. There is a 15 mm diameter intramural abscess versus fluid filled diverticulum within the proximal sigmoid colon. Conservative therapy with repeat imaging, if clinically warranted is recommended for further assessment." - Continue Zosyn IV, transition to Augmentin tomorrow - tolerating diet currently and good pain control 2. CT Abdomen also showing: "Probable posterior inferior splenic infarct. However, given the peripheral enhancement, evolving abscess may also be present. Close clinical followup is recommended, with repeat imaging, if clinically warranted." - monitor for further abdominal pain and repeat imaging as needed 3 Thrombocytosis, acute on chronic, present on admission. Improving - On admit: Platelets 1022; history of elevation, most recent June 2016 at 901. 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 Improving Patient and family report recent increase in mariaa symptoms over recent 3 weeks - reviewed and appreciated psychiatry recommendations. - continue Klonopin 1 mg bid, [place], Risperdal 0.25 mg HS and Remeron 7.5 mg HS - outpatient Psychiatric follow up 5 Hypertension, chronic. stable - Continue Atenolol 50 mg daily 6 Osteoporosis, chronic. Presumed stable - Patient on weekly alendronate schedule - Acetaminophen as needed for mild pain/fever/headache - Bowel regimen as needed - Antiemetic as needed Patient admitted under inpatient status with expected length of stay > 2 midnights for severity of present symptoms, complexities of treatment plan and risk for adverse event Disposition: Discharge home tomorrow. will arrange for outpatient psychiatric evaluation . GI Prophylaxis: Proton Pump Inhibitor VTE Prophylaxis: SCDs VTE Mechanical Devices: Intermittant Pneumatic CD Resuscitation Status: CPR: Attempt Resuscitation Ignacio Norman MD Dec 25, 2016 12:04
[2016-12-25 12:50] VITALS: BP 105/57; PULSE 77; RESP 17; O2SAT 96
--- NOTE | 2016-12-25 14:38 | NUR ---
Anxiety At shift change, patient verbalized increasing anxiety. Patient restless, frequently changing position from sitting to standing, and pacing in room. Patient requesting meds. Scheduled medications given. Throughout the late morning and afternoon, patient resting quietly in bed. Rouses to light stimulation stating "I'm just so sleepy..feels good to sleep". At this time patient visiting with friend. No complaints of anxiety. Will continue to monitor.
--- NOTE | 2016-12-25 15:34 | PCM.PNPSY ---
Subjective Date of Service Dec 25, 2016 Subjective I spent 30 minutes both reviewing treatment plan with clinical team, interviewing the patient and providing supportive/educational psychotherapy. I spent more than 50% of the time counseling the patient. I reviewed the treatment plan with the patient and discussed options available including the potential risks, benefits and side effects. Tori reports a marked improvement in thought organization and mood stability. Staff reports that she has been active and participating well in one -to-one unit and group activities. She reports she slept well and denies depression mariaa or psychotic symptoms review. She denies medication side effects. Patient was able to identify her medications and what they were used to treat. Current Medications Current Medications Clonazepam 1 mg BID PO Last administered on 12/25/16 09:20; Admin Dose 1 MG; Start 12/24/16 at 20:30 [place] Carbonate 300 mg BID PO Last administered on 12/25/16 09:18; Admin Dose 300 MG; Start 12/24/16 at 20:30 Risperidone 0.25 mg HS PO Last administered on 12/24/16 21:21; Admin Dose 0.25 MG; Start 12/23/16 at 21:00 Mental Status Exam Vital Signs Vital Signs Date Time Temp Pulse Resp B/P Pulse Ox O2 Delivery O2 Flow Rate FiO2 12/25/16 12:50 36.9 77 17 105/57 96 Room Air 12/25/16 08:20 36.9 86 16 130/73 96 Room Air Appearance: Neat/well groomed Attitude: Pleasant, Cooperative Behavior: No unusual behavior Affect: Well Modulated/Appropriate Mood: Euthymic Thought Process/Associations: Logical/Sequential, Goal Directed Speech Production: Normal Speech Rate: Normal Speech Articulation: Normal Thought Content: Appropriate Danger to Self/Suicidal Ideati: None Danger to Others: None Consciousness: Alert Orientation: Person, Place, Date, Situation Estimate Intellectual Function: Average Basis for IQ estimate: Awareness current events, Word use/vocabulary, Educational history Attention/Concentration & Cogn: Grossly Intact Insight: Good Judgement: Good Result Diagram: 12/24/16 0505 12/24/16 0505 Mental Health Plan The patient is a 76-year-old female who reportedly was admitted with acute diverticulosis, with noted previous history of bipolar disorder, recent hospitalization to the mental health unit in June 2016. Per family report, the patient has had increasing difficulties with possible mariaa over the past month. Today she appears bright and symptom-free. She appears to have tolerated that the new medication recommendations well. [place] AXIS I 1. Bipolar disorder, most recent episode manic. 2. Rule out dementia, not otherwise specified. AXIS II Deferred. AXIS III Deferred to the Hospitalist team. AXIS IV Stressors are noted for recent life transition. AXIS V Global Assessment of Functioning current 45. Treatments 1. Recommendation in [place] current medication regimen 2. Recommendation is for strong encouragement of further psychiatric followup. Will be discussed with the family. I do feel that the patient does warrant psychiatric prescriber intervention versus primary care, if available. Sign off at this time thank you for very delightful consult. Estevan Frazier MD Dec 25, 2016 15:34
--- NOTE | 2016-12-25 15:45 | NUR ---
ANXIETY P-Patient has history on anxiety and of being anxious lately. I- MD made adjustments to medications (ER and longer acting anxiety medications) Nurse and staff using calm and reassuring environment. E- Patient appears calm, no episodes of anxiety this shift. Outpatient follow up with PSY doctor to be scheduled at discharge.
[2016-12-25 16:33] VITALS: BP 119/76; PULSE 83; RESP 16; O2SAT 95
[2016-12-25 20:25] VITALS: BP 116/66; PULSE 84; RESP 20; O2SAT 96
[2016-12-25] MEDS: risperiDONE 1 mg Tablet PO SCH (20:44)
--- NOTE | 2016-12-26 05:16 | NUR ---
Sleeping Patient able to get a restful nights sleep, no noted s/s of anxiety, restlessness, or agitation. Will continue to monitor.
[2016-12-26 05:55] VITALS: BP 116/72; PULSE 75; RESP 18; O2SAT 95
[2016-12-26] MEDS: 0.9% Sodium Chloride 1,000 ML IV SCH (06:01)
[2016-12-26 06:10] LABS: BASOPHILS % (AUTO) 0.5 % (0-3); EOSINOPHILS % (AUTO) 2.7 % (0-5); MONOCYTES % (AUTO) 9.9 % (4-12); Mean Corpuscular Hemoglobin 29.5 pg (27.0-35.0); Mean Corpuscular Volume 93.4 fL (81-100); Platelet Count 891 bil/L (150-400)
[2016-12-26] MEDS: Pantoprazole 20 mg ER24 Tablet PO SCH (06:41)
[2016-12-26] MEDS: Piperacillin-Tazo 3.375 Gm Inj 3.375 GM in Dextrose 5% Minibag Plus 50 ML IV SCH (08:30)
--- NOTE | 2016-12-26 08:57 | PCM.DIMED ---
Discharge Instructions Date of Service Dec 26, 2016 Dates of Hospitalization Dec 22, 2016 at 22:01 Discharge Diagnosis Discharge Diagnosis Primary diagnosis Diverticulitis, acute. Under therapy, resolving Bipolar 1 disorder most recent episode manic. Improving Secondary diagnosis CT Abdomen also showing: "Probable posterior inferior splenic infarct. However, given the peripheral enhancement, evolving abscess may also be present. Close clinical followup is recommended, with repeat imaging, if clinically warranted. " Thrombocytosis, acute on chronic Hypertension Osteoporosis Diet Other (high fiber diet) Activity No restrictions Call your provider Fever or Chills, Other (increasing abdominal pain) Patient Instructions take antibiotics as instructed till finished take new psychiatric medications as instructed please call your doctor or go to the emergency department if you have increased abdominal pain, fever or chills Follow-up Provider: Ga Mills MD Follow-up with PCP in: 2 weeks Ignacio Norman MD Dec 26, 2016 08:57
[2016-12-26] MEDS ORDERED: KLO1T PO (09:01)
[2016-12-26] MEDS ORDERED: AMOX-366 PO (09:01)
[2016-12-26 09:19] VITALS: BP 119/79; PULSE 86; RESP 18; O2SAT 98
--- NOTE | 2016-12-26 11:25 | NUR ---
Social Work- Readiness for Discharge/Discharge Data: EMR reviewed. Pt is on day 4 of hospitalization for diverticulitis. Pt is medically stable for discharge, pt to discharge later today. Psychiatry has been following pt while hospitalized. At this time they are recommending outpt psychiatric follow up and continue medication regimen. SW discussed this recommendation with pt. Pt agreeable to outpt follow up and continued medications. Pt states that her medication regimen has been working well. Pt agreeable to discharge today. Pt to discharge home with son to transport via POV. No other discharge needs identified at this time. Assessment: Pt who is independent at base and who will receive outpt psychiatric services. Plan: Pt to follow up with outpt psychiatric services and medication regimen. Pt to discharge home with son to transport via POV. No other discharge needs identified at this time. HERMILA Talavera
--- NOTE | 2016-12-26 11:28 | NUR ---
Discharge Pt is DC'ing home with her son. Every effort was made to make instructions clear for her to follow at home, pt very appreciative and understanding with teach back on new medications. Pt knows to call her PCP Wednesday to get psych referral.
[2016-12-26] MEDS ORDERED: LIT300 PO (13:16)
[2016-12-26] MEDS ORDERED: LITH300T PO (13:20)
--- NOTE | 2016-12-26 23:14 | PCM.DC.MED ---
Discharge Summary Date of Service Dec 26, 2016 Dates of Hospitalization Date of Hospital Admission Dec 22, 2016 at 22:01 Date of Discharge: Dec 26, 2016 Providers: Admitting Physician: Timothy Mo MD Primary Care Physician: Ga Mills MD Attending Physician: Timothy Mo MD Diagnosis at Time of Discharge Diagnosis at Time of Discharge Primary diagnosis Diverticulitis, acute. Under therapy, resolving Bipolar 1 disorder most recent episode manic. Improving Secondary diagnosis CT Abdomen also showing: "Probable posterior inferior splenic infarct. However, given the peripheral enhancement, evolving abscess may also be present. Close clinical followup is recommended, with repeat imaging, if clinically warranted. " Thrombocytosis, acute on chronic Hypertension Osteoporosis Consultations Psychiatry: Dr Marc Barnes Brief History Ms. Perez is a pleasant 76-year-old female with history of bipolar disorder on long-term lithium use, thrombocytosis, and hypertension, that presented to [facility] with a 3 week history of increased insomnia, mariaa, and irritability, in addition to a three-day history of left lower quadrant abdominal pain without associated fever, chills, nausea, vomiting. She was noted to have an elevated white count in the ED, stat CT imaging revealed diverticulitis of the proximal sigmoid colon. She was admitted for evaluation and treatment of ongoing psychiatric issues, and addition to antibiotic therapy to address her diverticulitis. Hospital day 1 Ms. Perez's family is present at bedside, and note that the patient has been irritable, sleepless, and experiencing a mariaa episode over the recent 3 weeks. The patient states that her family brought her in with concerns of her psychiatric health. Patient states she has been increasingly anxious over the recent weeks. She denies any fever, chills, nausea, vomiting, diarrhea, constipation, blood within her stools or urine, shortness of breath, palpitations. She does note a few days prior to admission, she was experiencing constipation, of which, she took [id number] laxatives for therapy. She shares that she has been experiencing left lower quadrant abdominal pain over the recent 3 days prior to this admission, with pain extending to her left lower back. She does state she has a history of diverticulitis many years ago, but did not require hospitalization. Other than her bipolar disorder, she reports she is in relatively good health for her age, and is able to do most activities on her own without assistance. In regard to her psychiatric issue, she was recently seen at [facility] June 2016 under the care of Dr. Lechuga. Patient and family confirm that patient has been compliant with her medications, has not run out of any medications, and is adhered to the original schedule. In the ED, T 36.9, pulse 88, respiratory rate 16, pressure 152/91, 97% on room air; initial labs revealed WBC 23.1 with 76 neut, hemoglobin 14.4, platelets 1022; sodium 137, potassium 4.6, creatinine 0.89, lactic acid 0.7, AST 90 ALT 82 ; lithium level obtained 0.6; UA obtained which revealed small occult blood, negative leukocyte esterase and negative nitrites, moderate epithelial cells were noted with few bacteria. Blood cultures were also obtained and sent to lab. 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 ; CT abdomen and pelvis with contrast revealed a normal appearing liver and spleen, no evidence cholecystitis, no evidence of appendicitis, diverticulosis was noted of the descending and sigmoid colon with moderate thickening of the proximal sigmoid colon and associated moderate fat stranding surrounding the proximal sigmoid colon, in addition there was a 15 mm diameter region of intramural fluid and gas involving the anterior aspect of the proximal sigmoid colon, all of these findings were suggestive of diverticulitis, and other finding included probable posterior inferior splenic infarct but this was also thought to be evidence of an evolving abscess. Initial therapies included Zosyn and Flagyl, in addition to Ativan 1 L bolus normal saline. Patient was seen in the emergency department in stable condition awaiting transfer to floor. Hospital Course 1 Diverticulitis, acute, present on admission. Under therapy resolving - CT abd: "Diverticulitis of the proximal sigmoid colon. There is a 15 mm diameter intramural abscess versus fluid filled diverticulum within the proximal sigmoid colon. Conservative therapy with repeat imaging, if clinically warranted is recommended for further assessment." - Continue Zosyn IV, transition to Augmentin on discharge (10 days total therapy ) - tolerating diet currently and good pain control 2. CT Abdomen also showing: "Probable posterior inferior splenic infarct. However, given the peripheral enhancement, evolving abscess may also be present. Close clinical followup is recommended, with repeat imaging, if clinically warranted." - monitor for further abdominal pain and repeat imaging as needed 3 Thrombocytosis, acute on chronic, present on admission. Improving - On admit: Platelets 1022; history of elevation, most recent June 2016 at 901. 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 Improving Patient and family report recent increase in mariaa symptoms over recent 3 weeks - reviewed and appreciated psychiatry recommendations. - continue Klonopin 1 mg bid, [place] ER 30o mg bid, Risperdal 0.25 mg HS and Remeron 7.5 mg HS Xanax was discontinued - outpatient Psychiatric follow up recommended 5 Hypertension, chronic. stable - Continue Atenolol 50 mg daily 6 Osteoporosis, chronic. Presumed stable - Patient on weekly alendronate schedule . Exam Vital Signs (Last) Date Time Temp Pulse Resp B/P Pulse Ox O2 Delivery O2 Flow Rate FiO2 12/26/16 05:55 37.0 75 18 116/72 95 Room Air Exam General: Alert, Oriented X3, Cooperative, No acute Distress Eyes: PERRLA, Scleral Anicteric Mouth: Mouth Normal, Mucous Membranes Moist/[place] Neck: Supple, no Thyromegaly, trachea central. Chest & Lungs: Clear to auscultation & percussion, No adventitious breath sounds, no crackles, no wheeze Cardiovascular: Normal S1, Normal S2, No Murmurs/Rubs/Gallops, Regular Rate/ Rhythm, Pulses: Radial (present and equal), Dorsalis Pedi (present and equal) Abdomen: Soft, Non-tender, Non-distended, Normoactive bowel tones. Musculoskeletal: Unremarkable. Normal range of motion, no swollen or erythematous joints Extremities: No edema, no cyanosis, no clubbing. Skin: No rashes. Warm and dry, no erythematous areas Neurological: Grossly neurologically intact, Normal Speech, Sensation Intact Lymphatic: Lymph nodes Cervical and Axillary not palpable. Test 12/22/16 17:00 12/22/16 17:27 12/22/16 17:47 12/23/16 06:59 Band Neutrophils % 2% (1-5) Lactic Acid Level 0.7mmol/L (0.4-2.0) Thyroid Stimulating Hormone (TSH) 1.380uIU/mL (0.450-4.500) Hold Tse Top Tube Received (Received) [place] Level 0.6mEq/L (0.5-1.5) Hold Urine Received (Received) Urine Color Yellow (YELLOW) Urine Appearance Clear (CLEAR,HAZY) Urine pH 5.5 (5.0-8.0) Urine Specific [place] 1.020 (1.003-1.035) Urine Protein Negativemg/dL (NEG,TRACE) Urine Glucose (UA) Negativemg/dL (NEGATIVE) Urine Ketones Negativemg/dL (NEGATIVE) Urine Occult Blood Small (NEGATIVE) Urine Nitrite Negative (NEGATIVE) Urine Bilirubin Negative (NEGATIVE) Urine Urobilinogen Normalmg/dL (NORMAL) Urine Leukocyte Esterase Negative (NEGATIVE) Urine RBC 3-10/hpf (0-2) Urine WBC 0-5/hpf (0-5) Urine Epithelial Cells Moderate/hpf (NONE-MOD) Urine Crystals None seen (NONE SEEN) Urine Bacteria Few/hpf (NONE-FEW) Urine Hyaline Casts None/lpf (NONE) Urine Granular Casts None seen (NONE SEEN) Urine Waxy Casts None seen (NONE SEEN) Urine Red Blood Cell Casts None seen (NONE SEEN) Urine White Blood Cell Casts None seen (NONE SEEN) Urine Mucus Present (None Seen) Urine Trichomonas None seen (NONE SEEN) Urine Yeast None (NONE SEEN) Urinalysis Comment None Urine Culture Reflexed Not indicated Phosphorus Level 3.7mg/dL (2.5-4.9) Magnesium Level 2.2mg/dL (1.6-2.6) Procalcitonin 0.09ng/mL (0.00-0.08) Test 12/24/16 05:05 12/26/16 05:55 Sodium Level 140mEq/L (134-144) Potassium Level 5.0mEq/L (3.5-5.2) Chloride Level 104mEq/L (97-108) Carbon Dioxide Level 22mmol/L (18-29) Blood Urea Nitrogen 15mg/dL (8-27) Creatinine 0.87mg/dL (0.57-1.00) Estimat Glomerular Filtration Rate 91mL/min (>59) Glucose Level 103mg/dL (60-99) Calcium Level 10.0mg/dL (8.5-10.1) Total Bilirubin 0.4mg/dL (0.0-1.2) Aspartate Amino Transf (AST/SGOT) 43U/L (0-50) Alanine Aminotransferase (ALT/SGPT) 77U/L (0-32) Alkaline Phosphatase 70U/L (25-165) Total Protein 5.9g/dL (6.4-8.4) Albumin 3.9g/dL (3.4-5.0) White Blood Count 12.9th/mm3 (3.8-10.1) Red Blood Count 4.10mil/mm3 (3.90-5.20) Hemoglobin 12.1g/dL (12.0-15.6) Hematocrit 38.3% (35.0-46.0) Mean Corpuscular Volume 93.4fL (81-100) Mean Corpuscular Hemoglobin 29.5pg (27.0-35.0) Mean Corpuscular Hemoglobin Concent 31.6% (32.0-37.0) Red Cell Distribution Width 15.4% (12.3-15.4) Platelet Count 891bil/L (150-400) Neutrophils (%) (Auto) 64.0% (40-74) Lymphocytes (%) (Auto) 22.6% (14-46) Monocytes (%) (Auto) 9.9% (4-12) Eosinophils (%) (Auto) 2.7% (0-5) Basophils (%) (Auto) 0.5% (0-3) Discharge Medications Discharge Medications Alendronate Sodium (Fosamax) 70 Mg Tablet 70 MG PO Q Wednesday (Reported) Amoxicillin/Clav K 875-125 mg (Augmentin 875-125 mg) 1 Each Tablet 1 TABLET PO BID Prescribed by: TIMOTHY MO MD Atenolol (Atenolol) 50 Mg Tablet 50 MG PO QAM (Reported) Cholecalciferol (Vitamin D3) (Vitamin D) 1,000 Unit Capsule 1,000 UNIT PO QAM ( Reported) Clonazepam (Clonazepam) 1 Mg Tablet 1 MG PO BID Prescribed by: TIMOTHY MO MD Clopidogrel Bisulfate (Plavix) 75 Mg Tablet 75 MG PO DAILY Prescribed by: Malik MELCHOR MD [place] Carbonate ([place] Carbonate) 300 Mg Cap 300 MG PO BID (Reported) [place] Carbonate ([place] Carbonate) 300 Mg Cap 300 MG PO BID Prescribed by: TIMOTHY MO MD [place] Carbonate ([place] Carbonate) 300 Mg Tablet.er 300 MG PO BID Prescribed by: TIMOTHY MO MD Lovastatin (Lovastatin) 40 Mg Tablet 40 MG PO HS (Reported) Mirtazapine (Mirtazapine) 7.5 Mg Tablet 7.5 MG PO HS (Reported) Omeprazole (Omeprazole) 20 Mg Capsule.dr 20 MG PO DAILY (Reported) Risperidone (Risperdal) 1 Mg Tablet 0.25 MG PO HS Prescribed by: WILMAN LECHUGA MD As needed Tramadol (Tramadol) 50 Mg Tablet 50 MG PO Q6 PRN PRN For Pain (Reported) Followup Plan Disposition: Home Discharge Diet: Other (high fiber diet) Discharge Activity: No restrictions Patient Instructions take antibiotics as instructed till finished take new psychiatric medications as instructed please call your doctor or go to the emergency department if you have increased abdominal pain, fever or chills Follow-up Provider: Ga Mills MD Follow-up with PCP in: 2 weeks Time spent 28 minutes spend copies to: Ga Mills MD, Malik MD Dec 26, 2016 09:05
[2017-01-06] MEDS ORDERED: CLON0.5T PO (13:29)
== END 2016-12-26 11:25 | disposition home or self-care (01) | DRG 392 ==
LOC: SED 15:47 → OSC 22:01 → UNDOADMIN 22:29
PROVIDERS: ADMIT Hospitalist; ATTEND Hospitalist
DX: K57.20 Diverticulitis of large intestine with perforation and abscess without bleeding (principal); F31.10 Bipolar disorder, current episode manic without psychotic features, unspecified; I10 Essential (primary) hypertension; M81.0 Age-related osteoporosis without current pathological fracture; D47.3 Essential (hemorrhagic) thrombocythemia; D73.5 Infarction of spleen

== ENCOUNTER 2017-01-08 12:47 | Inpatient (IN) | payer MEDICARE, MEDICAID ==
[~2017-01-08] VITALS: Ht 160 cm; Wt 47.8 kg
[~2017-01-08 12:47] MED LIST changes: -ALPR0.254 PO; +AMOX-366 PO; +CLON0.5T PO; +KLO1T PO; -LIT300 PO; +LITH300T PO; -MIRT15TA6 PO; +MIRT7.5T8 PO
[2017-01-08 12:58] VITALS: BP 137/85; PULSE 77; RESP 16; O2SAT 99
--- NOTE | 2017-01-08 12:59 | ED.REPORT ---
HPI-General Illness Date of Service January 08, 2017 ED Provider: Mary Dawson MD Patient is a 76 year old female with a history of stroke who presents to the ED due to a possible stroke at 1100 today. Associated symptoms include dizziness, confusion, weakness in her right arm, trouble walking and a fall. Patient reports that the dizziness has since resolved. The patient states that she has recently started a new medication and thinks it might be the cause. Nursing Notes Stated Complaint: POSS STROKE Chief Complaint: Neuro Symptoms/ Deficits Nursing Notes Reviewed: Yes Allergies: Coded Allergies: No Known Allergies (Verified Allergy, Unknown, 01/08/17) Scheduled Atenolol (Atenolol) 50 Mg Tablet 50 MG PO QAM Cholecalciferol (Vitamin D3) (Vitamin D) 1,000 Unit Capsule 1,000 UNIT PO QAM Clonazepam (Clonazepam) 1 Mg Tablet 1 MG PO BID Clopidogrel Bisulfate (Plavix) 75 Mg Tablet 75 MG PO DAILY Hydroxyurea (Hydroxyurea) 500 Mg Capsule 500 MG PO HS [place] Carbonate ([place] Carbonate) 300 Mg Tablet.er 300 MG PO BID Lovastatin (Lovastatin) 40 Mg Tablet 40 MG PO HS Mirtazapine (Mirtazapine) 7.5 Mg Tablet 7.5 MG PO HS Risperidone (Risperdal) 1 Mg Tablet 0.25 MG PO HS Scheduled PRN Tramadol (Tramadol) 50 Mg Tablet 50 MG PO Q6 PRN PRN For Pain General Time Seen by MD: 12:59 Chief Complaint Other (possible stroke) Hx Obtained From: Patient Arrived By: Walk-in Sudden in Onset?: Yes Onset Occurred: Just prior to arrival Associated with: Reports: Dizziness, Weak extremity (right arm) Recent Healthcare: Recent doctor visit, Recent hospitalization Similar Sx Previous: Yes Past Medical History Past Medical History Notes: bi polar Past Medical History diverticulitis Prediabetes Back pain Osteoporosis Allergic rhinitis Actinic keratosis CVD Bipolar disorder Parasomnia Thrombocytosis Reports: Hypertension Past Surgical History elbow surgery Reports: Hysterectomy Smoking History Never Smoker Social History Alcohol Use: Denies alcohol use Drug Use: Denies drug use Other Social History: Good social support, Lives with children Occupation lives with son. 12/22/2016 Ambulatory Status Independent Review of Systems Full Review of Systems Respiratory: Denies: Non-productive cough, Shortness of breath Neurologic: Reports: Confusion, Dizziness, Problem walking, Weakness Complete sys rev & neg: except as marked. Physical Exam Vital Signs Vital Signs Date Time Temp Pulse Resp B/P Pulse Ox O2 Delivery O2 Flow Rate FiO2 01/08/17 14:29 65 15 136/85 100 Room Air 01/08/17 13:14 79 17 122/70 98 Room Air 01/08/17 12:58 36.9 77 16 137/85 99 Room Air Initial VS: Reviewed, Vital signs normal General/Constitutional: Awake, Alert Head / Eyes: Atraumatic, Normocephalic, PERRL, EOMI Respiratory / Chest: Atraumatic, Breath sounds NL, Breath sounds = bilat, No respiratory distress Cardiovascular: Heart rate NL, Regular rhythm, Heart sounds NL Lower Extremity / Pelvis / MS: Atraumatic, Full range of motion Skin: Atraumatic, Color NL, No rash, Warm, Dry Neurologic: Oriented X3, Speech NL, No motor deficits, No sensory deficits Psychiatric: Affect NL, Mood NL NIH Stroke Scale Level of Consciousness: Alert and responsive (0) Ask Month & Age: Both questions right (0) Open/Close Eyes/Hand Tag Press Operator: Performs both tasks (0) Horizontal EO Movements: None (0) Visual Manrique: No visual loss (0) Facial Palsy: Normal symmetry (0) Right Arm Motor Drift (10s): Drift, not touch bed (1) Left Arm Motor Drift (10s): No drift 10 sec (0) Right Leg Motor Drift (5s): No drift 5 sec (0) Left Leg Motor Drift (5s): No drift 5 sec (0) Limb Ataxia FNF/Heel-Fuentes: No ataxia (0) Sensation (Arms/Legs/Face): No sensory loss (0) Language Aphasia: No aphasia, normal (0) Dysarthria: No dysarthria, normal (0) Extinction/Inattention: No exctinct/inattent (0) NIHSS Score: 1 Time NIHSS Performed: 13:20 Date NIHSS Performed: January 08, 2017 )( CVA Risk Stratification Age >60 Hypertension Prior CVA/TIA Risk factors reviewed Interpretation & Diagnostics Lab Results Interpretation Result Diagram: 01/08/17 1300 01/08/17 1300 Test 01/08/17 13:00 White Blood Count 12.1th/mm3 (3.8-10.1) Red Blood Count 4.73mil/mm3 (3.90-5.20) Hemoglobin 14.0g/dL (12.0-15.6) Hematocrit 43.3% (35.0-46.0) Mean Corpuscular Volume 91.5fL (81-100) Mean Corpuscular Hemoglobin 29.6pg (27.0-35.0) Mean Corpuscular Hemoglobin Concent 32.3% (32.0-37.0) Red Cell Distribution Width 14.9% (12.3-15.4) Platelet Count 907bil/L (150-400) Neutrophils (%) (Auto) 69.3% (40-74) Lymphocytes (%) (Auto) 19.4% (14-46) Monocytes (%) (Auto) 8.5% (4-12) Eosinophils (%) (Auto) 1.9% (0-5) Basophils (%) (Auto) 0.7% (0-3) Prothrombin Time 10.7sec (8.1-12.5) Prothromb Time International Ratio 1.00ratio Activated Partial Thromboplast Time 24.3sec (22.8-33.0) Sodium Level 137mEq/L (134-144) Potassium Level 4.2mEq/L (3.5-5.2) Chloride Level 103mEq/L (97-108) Carbon Dioxide Level 20mmol/L (18-29) Blood Urea Nitrogen 18mg/dL (8-27) Creatinine 0.92mg/dL (0.57-1.00) Estimat Glomerular Filtration Rate 85mL/min (>59) Glucose Level 104mg/dL (60-99) Calcium Level 9.8mg/dL (8.5-10.1) Total Bilirubin 0.5mg/dL (0.0-1.2) Aspartate Amino Transf (AST/SGOT) 17U/L (0-50) Alanine Aminotransferase (ALT/SGPT) 11U/L (0-32) Alkaline Phosphatase 39U/L (25-165) Troponin T < 0.010ug/L (0.0-0.011) Total Protein 6.7g/dL (6.4-8.4) Albumin 3.8g/dL (3.4-5.0) Hold Tse Top Tube Received (Received) ECG Interpretation ECG Interpretation: Normal intervals normal acess no acute ST or T wave changes Time: 13:18 Interpreted by: ED physician Normal ECG Interpretation: Normal rate (76), Normal sinus rhythm CT Head Interpretation IMPRESSION: 1. No CT evidence of acute intracranial pathology. Old left-sided encephalomalacia. 2. Findings discussed by telephone with Dr. Dawson at 1:08 PM on January 08, 2017. This study fulfills neurological imaging criteria for inclusion or exclusion of acute stroke therapies based on available published neurological imaging guidelines. Dictated by: Devin Smith M.D. on 01/08/2017 at 13:07 Approved by: Devin Smith M.D. on 01/08/2017 at 13:11 Interpretation / Wet Read by: Interpret - Radiologist Procedures Procedure Notes: TPA not given due to minimal symptoms Re-Eval/Medical Decision Med Decision/Clinical Course The patient presents with neurologic complaints are improving. She is not a TPA candidate given her symptoms are minimal and improving. During my last evaluation the patient was able to lift her right arm. She will be admitted for further evaluation regarding her neurologic symptoms. Time of Eval: 14:10 Re-Evaluation/Progress Note: Discussed plan for admit. The patient understands and agrees to the plan. All questions were addressed. Consultation : Referral / Consult Name: Malik Mckay MD Consulted With: Hospitalist Call Returned at: 15:01 Luggage Liner: Agrees with eval, Agrees with plan, Accepts admit Counseled Regarding: Diagnosis, Lab results, Need for admission Discharge & Departure Primary Impression: TIA (transient ischemic attack) Transient cerebral ischemia type: unspecified Qualified Code: G45.9 - Transient cerebral ischemic attack, unspecified Disposition: ADMITTED TO HOSPITAL Discharge Condition All VS Reviewed: Yes Condition: Stable Referrals: Ga Mills MD (PCP) Ralph Attestation Portions of this note were transcribed by Payal Reyes. I, Dr. Daswon personally performed the history, physical exam and medical decision-making; I reviewed and confirmed the accuracy of the information in the transcribed note. Signed by: Ralph Zuniga, 01/08/17 and 1500 copies to: Ga Mills MD, Jena M MD January 08, 2017 12:59 Megan Reyes January 08, 2017 13:11
--- NOTE | 2017-01-08 13:12 | DRSVH ---
PROCEDURE: CT BRAIN (TPA) ([id number]) INDICATIONS: Stroke TECHNIQUE: Noncontrast 4.5 mm thick angled axial sections acquired from the foramen magnum to the vertex, with c oronal reformats. COMPARISON: None. FINDINGS: Image quality: Excellent. CSF spaces: Basal cisterns are patent. No extra-axial fluid collections. Ventricles are normal in size and shape. Brain: No midline shift. No intracranial masses or hemorrhage. Chavarria-white matter interface is norm al. Old left frontal lobe encephalomalacia. Skull and face: Calvarium and visualized facial bones are intact, without suspicious lesions. Sinuses: Visualized sinuses and mastoids are clear. IMPRESSION: 1. No CT evidence of acute intracranial pathology. Old left-sided encephalomalacia. 2. Findings discussed by telephone with Dr. Dawson at 1:08 PM on January 08, 2017. This study fulfills neurological imaging criteria for inclusion or exclusion of acute stroke therapie s based on available published neurological imaging guidelines. Dictated by: Devin Smith M.D. on 01/08/2017 at 13:07 Approved by: Devin Smith M.D. on 01/08/2017 at 13:11
[2017-01-08 13:14] VITALS: BP 122/70; PULSE 79; RESP 17; O2SAT 98
[2017-01-08 13:21] LABS: BASOPHILS % (AUTO) 0.7 % (0-3); Mean Corpuscular Hemoglobin 29.6 pg (27.0-35.0)
[2017-01-08 13:26] LABS: EOSINOPHILS % (AUTO) 1.9 % (0-5); MONOCYTES % (AUTO) 8.5 % (4-12); Mean Corpuscular Volume 91.5 fL (81-100); NEUTROPHILS % (AUTO) 69.3 % (40-74); Platelet Count 907 bil/L (150-400)
[2017-01-08 14:00] LABS: TROPONIN T < 0.010 ug/L (0.0-0.011)
[2017-01-08 14:29] VITALS: BP 136/85; PULSE 65; RESP 15; O2SAT 100
[2017-01-08] MEDS ORDERED: HYDR500C2 PO (14:29)
--- NOTE | 2017-01-08 14:31 | NUR ---
Evaluation completed. Please go to "Notes" then click on "Assessments and Notes" (bottom left corner of screen). Then select appropriate discipline tab on top of screen.
[2017-01-08] MEDS ORDERED: Ondansetron 2 mg/mL 2 mL Inj IVPUSH PRN (15:30)
[2017-01-08] MEDS ORDERED: Alum-Mag Hydrox-Simeth 30 mL Suspension PO PRN (15:30)
[2017-01-08 15:35] LABS: APPEARANCE,URINE CLEAR (CLEAR,HAZY); COLOR,URINE STRAW (YELLOW); OCCULT BLOOD,URINE NEGATIVE (NEGATIVE); UROBILINOGEN,URINE NORMAL (NORMAL)
[2017-01-08 16:33] VITALS: BP 111/68; PULSE 65; RESP 20; O2SAT 98
[2017-01-08 21:16] VITALS: BP 120/70; PULSE 63; RESP 20; O2SAT 97
[2017-01-08] MEDS: risperiDONE 1 mg Tablet PO SCH (21:23)
--- NOTE | 2017-01-08 22:16 | DRSVH ---
PROCEDURE: MRI BRAIN WITHOUT CONTRAST ([id number]) INDICATIONS: 76 year-old woman with right arm weakness. TECHNIQUE: Non-contrast axial T1 spin echo, axial T2 fast spin echo, sagittal and axial FLAIR, coronal T2 fast s pin echo, axial gradient echo, axial diffusion and ADC through the brain. COMPARISON: [facility], MR, MR ANGIO HEAD WO CON, 01/08/2017, 17:01. [facility], MR, STROKE PROTOCOL (PNL), 01/21/2015, 10:57. [facility], CT, BRAIN W/O CONTRAST, , 22:55. [facility], CT, BRAIN (TPA), 01/08/2017, 13:04. FINDINGS: Image quality: Excellent. CSF spaces: Ventricles appear symmetric in size and shape. Basal cisterns are patent. No extra-axi al fluid collections. Brain: There is a small focus of restricted diffusion in the left frontal lobe, consistent with acu te infarct. No intracranial bleeds or mass effects. An old MCA infarct with associated encephalomala aman in the left frontotemporal is again noted. There is moderate cerebral volume loss for age. There are mild/moderate periventricular and deep white matter chronic small vessel ischemic changes. Brai nstem appears normal. Normal intravascular flow voids are present. Skull and face: Calvarial bone marrow is normal in signal. Orbits are normal. Sinuses: Sinuses and mastoids are clear. IMPRESSION: 1. A small acute infarct in the left frontal lobe. 2. Old MCA infarct with encephalomalacia in the left frontotemporal lobe. 3. Cerebral volume loss and chronic microvascular ischemic changes. Dictated by: Pebbles Harry M.D. on 01/08/2017 at 21:52 Approved by: Pebbles Harry M.D. on 01/08/2017 at 22:14
--- NOTE | 2017-01-08 22:29 | DRSVH ---
PROCEDURE: MRA ANGIOGRAM HEAD WITHOUT CONTRAST ([id number]) INDICATIONS: RIGHT ARM WEAKNESS TECHNIQUE: Noncontrast axial 3-D [id number] MR angiogram, with 3-dimensional maximum intensity projection (M IP) reformats of the internal carotid arteries and posterior circulation then performed. COMPARISON: [facility], , STROKE PROTOCOL (PNL), 01/21/2015, 10:57. FINDINGS: Image quality: Excellent. Anterior circulation: Intracranial internal carotid arteries are patent. There is mild to moderate n arrowing of the cavernous segment of the right carotid artery. The left intracranial internal carotid artery demonstrates normal caliber. The flow within the paired anterior cerebral arteries is normal and symmetric. There appears to be moderate focal narrowing at the origin of the left middle cerebra l artery. The flow within the middle cerebral arteries is as well as normal and symmetric. The anter ior communicating artery is seen. No stenoses, occlusions, or aneurysms. Posterior circulation: The left vertebral artery is dominant. The terminal right vertebral artery is hypoplastic or aplastic. Visualized left vertebral artery continues to form a normal appearing basil ar artery. The flow within the posterior cerebral arteries is normal and symmetric. No stenoses, oc clusions, or aneurysms. IMPRESSION: 1. Mild to moderate narrowing of the cavernous segment of the right internal carotid artery. 2. Moderate focal narrowing at the origin of the left middle cerebral artery. 3. 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 4. Dominant left vertebral artery which continues to form a normal appearing basilar artery. Dictated by: Pebbles Harry M.D. on 01/08/2017 at 22:14 Approved by: Pebbles Harry M.D. on 01/08/2017 at 22:27
[2017-01-09] VITALS (8 sets, daily range): BP systolic 99–123; BP diastolic 63–83; PULSE 56–73; RESP 16–20; O2SAT 95–98
--- NOTE | 2017-01-09 06:40 | NUR ---
Noc/NVS Pt has been admitted for CVA workup. Denies chest pain, sob, n/v or abd discomfort. No facial droop, tongue deviation, slurring of speech. PERRLA. Has been alert and oriented. Pleasant and cooperative with care. Reports of right arm numbness/weakness. HS meds administered as scheduled, VSS and pt has been afebrile through the night.
--- NOTE | 2017-01-09 08:54 | PCM.PNMED ---
Subjective Date of Service January 09, 2017 Subjective Doing better this AM. Now can walk, still bit unsteady but significantly inmroved, right arm weakness also gone. MRI with acute cva L frontal lobe, no evidence of a cerebellar stroke. No other problems noted. Exam Vital Signs Vital Sign - Last Date Time Temp Pulse Resp B/P Pulse Ox O2 Delivery O2 Flow Rate FiO2 01/09/17 06:35 36.7 68 18 118/76 98 Room Air Intake and Output 01/08/17 01/08/17 01/09/17 Cumulative From/Thru 15:00 23:00 07:00 01/08/17 12:58 - 01/09/17 06:42 Intake Total 0 ml 400 ml 400 ml Balance 0 ml 400 ml 400 ml Intake Oral 400 ml 400 ml IV Total 0 ml 0 ml 0 ml # Voids 2 2 # Bowel Movements 0 0 Exam Neuro: upper arm strength equall bilaterally. Finger nose heal aparicio R, almost normal CN 2-12 intact, no sensory defects walks with some dificulty but patient says most of that is chronic, she feels she is almost back to base line CV; no edema, 1/6 systolic murmur, regular Resp; clear GI; soft and benign Lab and Diagnostics Result Diagram: 01/08/17 1300 01/08/17 1300 Assessment & Plan 1. Acute CVE, poa, improving -L frontal -suspect TIA from cerebellar area as these defects are essentially resolved -change lovastatin 40 to atorvastatin 40 -review with Oncology it application development manager (hydroxyrea), will hold med for now -echo -PT, ST, OT -add 81 mg asa to plavix -Tele 2.Hypertension, poa, stable -reduce tenormin to 12.5 3.Essential Thrombocytosis, poa, stable -review with oincology it application development manager -hold hydroxurea for now 4. Bipolar, poa, stable -continue lithium, mirtazapine, risperidol Disposition; pcp = Dr Mills onc = Dr. Soto lives with son Malik Mckay MD January 09, 2017 08:54
--- NOTE | 2017-01-09 09:43 | HP ---
[address] [address] HISTORY AND PHYSICAL PATIENT: ALEC STRATTON : 1940 MR#: [id number] ADMIT: 01/08/2017 JOB ID: [id number] PRIMARY CARE PROVIDER: Ga Mills M.D. CLINICAL SOCIOLOGIST: Dr. Soto. Patient admitted from ED, observational status, Green Team. CHIEF COMPLAINT: Disequilibrium and weakness to right arm. HISTORY OF PRESENT ILLNESS: This is a 76-year-old female with a prior left MCA infarction who woke up and shortly after this time noticed she could not walk. She kind of almost fell down and then she noticed that she had disequilibrium to the point that she could not walk. So she was brought to the emergency department. Before she got there, then there was also some noting of right arm weakness with a drift. She was evaluated in the ED, and that was noted there also. The patient had a noncontrast CT which was unrevealing and she was admitted to the floor. By the time she got up to the floor, the right arm weakness was resolving. She had had no headache. There was no recent trauma. The patient has recently been started on hydroxyurea, had taken two doses. She has been on Plavix, statin and beta demarco. Otherwise there has been no nausea, vomiting, abdominal pain, diarrhea. The patient also denies any chest pain or fast heart rates or palpitations of significance. REVIEW OF SYSTEMS: Complete review of systems obtained, all pertinent positives in HPI above, rest of review of systems are negative. PAST MEDICAL HISTORY: 1. Hypertension. 2. Essential thrombocytosis for which patient was started on hydroxyurea and has taken two doses. 3. Bipolar disorder. 4. Diverticulosis. 5. Hysterectomy. 6. 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 This affected her memory and speech. MEDICATIONS: 1. Hydroxyurea 500 daily and has taken two doses. 2. Alendronate 70 once a week. 3. Clonazepam 1 mg b.i.d. 4. Atenolol 50 daily. 5. Plavix 75 daily. 6. [place] 300 b.i.d. ER. 7. Lovastatin 40 q. p.m. 8. Mirtazapine 7.5 at bedtime. 9. Risperidone 0.25 at bedtime. ALLERGIES: None. SOCIAL HISTORY: Lives with her son. There is no alcohol, no tobacco use. FAMILY HISTORY: Father of colon cancer. Mother had an CA in her 70s. PHYSICAL EXAMINATION: No fever, blood pressure 111/68, O2 sats 98% on room air. Skin is warm and dry. Cranial nerves 2-12 are intact. The patient's strength in her right arm is a little bit less and there is evidence of drift down and pronator drift. Patellar reflexes were equal and symmetrical. No sensory loss. No other motor or focal motor loss either. Cerebellar testing shows significant abnormalities to finger to nose, heel to aparicio on the right side. Trying to stand the patient. She cannot maintain her balance. She can stand but falls to one side or the other. Eyes: PERRLA. EOM intact. Mouth shows adequate hydration. No bruit. Cardiac: Regular 1-2/6 systolic murmur. Lungs clear. Abdomen: Soft, nonacute, benign. Extremities showed no edema. FINAL DIAGNOSES: 1. Acute cerebrovascular accident, cerebellar and/or left motor area, present on admission. Active. Plan: The patient's Plavix will be continued, change lovastatin to atorvastatin 40. Acute stroke protocol ordered, echo ordered. Will review with Oncology concerning hydroxyurea. Physical therapy, speech therapy and occupational therapy. 2. Hypertension. Reduce atenolol to 25 daily. Monitor blood pressure. 3. Essential thrombocytosis present on admission, active. Will hold hydroxyurea and touch base with Oncology or with Hematology. 4. Bipolar. Continue lithium, mirtazapine, risperidone and check lithium level. DISPOSITION: The patient lives with her son, primary care provider is Dr. Mills, dry house attendant Dr. Soto.
--- NOTE | 2017-01-09 11:19 | NUR ---
[facility] signed
--- NOTE | 2017-01-09 15:33 | NUR ---
Neuros Neuro checks improving, movement intact with only slight weakness reported. SBA-IND activity in room. Some anxiety noted, meds admin and reassurance given. Tele in place at this time and awaiting Echo results.
[2017-01-09] MEDS: risperiDONE 1 mg Tablet PO SCH (21:33)
[2017-01-10 03:09] VITALS: BP 108/74; PULSE 73; RESP 18; O2SAT 95
--- NOTE | 2017-01-10 05:41 | NUR ---
neuro Pt A&Ox3; forgetful from previous CVA. extremities have equal lehr attendant. independent in the room. denies pain or discomfort.
[2017-01-10 05:47] VITALS: PULSE 73
[2017-01-10 06:07] LABS: BASOPHILS % (AUTO) 0.8 % (0-3); EOSINOPHILS % (AUTO) 2.6 % (0-5); MONOCYTES % (AUTO) 9.5 % (4-12); Mean Corpuscular Hemoglobin 29.6 pg (27.0-35.0); Mean Corpuscular Volume 90.6 fL (81-100); Platelet Count 805 bil/L (150-400)
--- NOTE | 2017-01-10 08:30 | NUR ---
Recommending home health or outpatient speech therapy services following d/c due to deficits in visuospatial and executive functioning, attention and delayed recall skills. Addendum: 01/10/17 at 0833 by NAN DEL RIO Please see Speech Therapy notes for complete pt results from the Braxton Cognitive Assessment (MOCA) administered on 01/09/17.
--- NOTE | 2017-01-10 09:26 | PCM.DIMED ---
Discharge Instructions Date of Service January 10, 2017 Dates of Hospitalization January 08, 2017 at 15:08 Discharge Diagnosis Discharge Diagnosis 1. Acute cerebrovascular accident, 2. Hypertension. 3. Essential thrombocytosis 4. Bipolar disorder Diet Heart Healthy Activity Limited until seen by PCP Patient Instructions Follow-up plan I amber like you to call Dr Soto Wednesday morning to make an appointment to see him; need to discuss the hyroxyurea and plan for treating your essential thrombocytosis. [place] also follow up with your primary care provider soon. Malik Mckay MD January 10, 2017 09:26
[2017-01-10] MEDS ORDERED: ATOR10TA66 PO (09:29)
[2017-01-10] MEDS ORDERED: ASPI-973 PO (09:29)
[2017-01-10] MEDS ORDERED: Polyethylene Glycol (PEG) 17 Gm Powder PO STA (09:53)
--- NOTE | 2017-01-10 09:54 | NUR ---
Social Work: Initial Assessment / D/C Data: Pt is a 76 y/o female admitted for CVA/TIA. Pt's PCP is Dr Mills, pt's insurance is [facility] [place] Medicare with [facility] supp. EMR reviewed. Readmit score is 4, high. NETWORK MANAGER met with pt at bedside, role explained. Pt states she lives with her son in [place] where she uses no DME, has no hx of HH or SNF, drives, does not have LTC or VA benefits, and is not a caregiver. Pt has [facility] 72 hours per month, heel caser is Marlo Dumont. Clinicals faxed. D/C orders are in. Pt is up and independent in the room. No d/c planning needs at this time. NETWORK MANAGER will continue to follow if needs arise. Assessment: Pt with [facility]. Plan: Pt will d/c home today via POV with [facility]. No d/c planning needs at this time. NETWORK MANAGER will continue to follow if needs arise. HERMILA Gary Addendum: 01/10/17 at 0958 by WENDY LEWIS Amended: Links added.
[2017-01-10 10:01] VITALS: PULSE 86
--- NOTE | 2017-01-10 10:01 | PCM.DC.MED ---
Discharge Summary Date of Service January 10, 2017 Dates of Hospitalization Date of Hospital Admission January 08, 2017 at 15:08 Date of Discharge: January 10, 2017 Providers: Admitting Physician: Malik Mckay MD Primary Care Physician: Ga Mills MD Attending Physician: Malik Mckay MD Diagnosis at Time of Discharge Diagnosis at Time of Discharge 1. Acute cerebrovascular accident, 2. Hypertension. 3. Essential thrombocytosis 4. Bipolar disorder Procedures XRay, CTs & MRIs PROCEDURE: MRI BRAIN WITHOUT CONTRAST ([id number]) INDICATIONS: 76 year-old woman with right arm weakness. TECHNIQUE: Non-contrast axial T1 spin echo, axial T2 fast spin echo, sagittal and axial FLAIR, coronal T2 fast spin echo, axial gradient echo, axial diffusion and ADC through the brain. COMPARISON: [facility], MR, MR ANGIO HEAD WO CON, 01/08/2017, 17: 01. [facility], MR, STROKE PROTOCOL (PNL), 01/21/2015, 10:57. [facility], CT, BRAIN W/O CONTRAST, 01/20/2015, 22:55. [facility], CT, BRAIN (TPA), 01/08/2017, 13:04. FINDINGS: Image quality: Excellent. CSF spaces: Ventricles appear symmetric in size and shape. Basal cisterns are patent. No extra-axial fluid collections. Brain: There is a small focus of restricted diffusion in the left frontal lobe , consistent with acute infarct. No intracranial bleeds or mass effects. An old MCA infarct with associated encephalomalacia in the left frontotemporal is again noted. There is moderate cerebral volume loss for age. There are mild/ moderate periventricular and deep white matter chronic small vessel ischemic changes. Brainstem appears normal. Normal intravascular flow voids are present. Skull and face: Calvarial bone marrow is normal in signal. Orbits are normal. Sinuses: Sinuses and mastoids are clear. IMPRESSION: 1. A small acute infarct in the left frontal lobe. 2. Old MCA infarct with encephalomalacia in the left frontotemporal lobe. 3. Cerebral volume loss and chronic microvascular ischemic changes. PROCEDURE: MRA ANGIOGRAM HEAD WITHOUT CONTRAST ([id number]) INDICATIONS: RIGHT ARM WEAKNESS TECHNIQUE: Noncontrast axial 3-D [id number] MR angiogram, with 3-dimensional maximum intensity projection (MIP) reformats of the internal carotid arteries and posterior circulation then performed. COMPARISON: [facility], MR, STROKE PROTOCOL (PNL), 01/21/2015, 10: 57. FINDINGS: Image quality: Excellent. Anterior circulation: Intracranial internal carotid arteries are patent. There is mild to moderate narrowing of the cavernous segment of the right carotid artery. The left intracranial internal carotid artery demonstrates normal caliber. The flow within the paired anterior cerebral arteries is normal and symmetric. There appears to be moderate focal narrowing at the origin of the left middle cerebral artery. The flow within the middle cerebral arteries is as well as normal and symmetric. The anterior communicating artery is seen. No stenoses, occlusions, or aneurysms. Posterior circulation: The left vertebral artery is dominant. The terminal right vertebral artery is hypoplastic or aplastic. Visualized left vertebral artery continues to form a normal appearing basilar artery. The flow within the posterior cerebral arteries is normal and symmetric. No stenoses, occlusions, or aneurysms. IMPRESSION: 1. Mild to moderate narrowing of the cavernous segment of the right internal carotid artery. 2. Moderate focal narrowing at the origin of the left middle cerebral artery. 3. 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 4. Dominant left vertebral artery which continues to form a normal appearing basilar artery. Dictated by: Pebbles Harry M.D. on 01/08/2017 at 22:14 Cardiac Echo Impression cardiac echo pending at time of discharge Brief History HISTORY AND PHYSICAL PATIENT: ALEC STRATTON : 1940 MR#: [id number] ADMIT: 01/08/2017 JOB ID: [id number] PRIMARY CARE PROVIDER: Ga Mills M.D. TELECOMMUNICATIONS OPERATOR: Dr. Soto. Patient admitted from ED, observational status, Green Team. CHIEF COMPLAINT: Disequilibrium and weakness to right arm. HISTORY OF PRESENT ILLNESS: This is a 76-year-old female with a prior left MCA infarction who woke up and shortly after this time noticed she could not walk. She kind of almost fell down and then she noticed that she had disequilibrium to the point that she could not walk. So she was brought to the emergency department. Before she got there, then there was also some noting of right arm weakness with a drift. She was evaluated in the ED, and that was noted there also. The patient had a noncontrast CT which was unrevealing and she was admitted to the floor. By the time she got up to the floor, the right arm weakness was resolving. She had had no headache. There was no recent trauma. The patient has recently been started on hydroxyurea, had taken two doses. She has been on Plavix, statin and beta demarco. Otherwise there has been no nausea, vomiting, abdominal pain, diarrhea. The patient also denies any chest pain or fast heart rates or palpitations of significance. REVIEW OF SYSTEMS: Complete review of systems obtained, all pertinent positives in HPI above, rest of review of systems are negative. PAST MEDICAL HISTORY: 1. Hypertension. 2. Essential thrombocytosis for which patient was started on hydroxyurea and has taken two doses. 3. Bipolar disorder. 4. Diverticulosis. 5. Hysterectomy. 6. 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 This affected her memory and speech. MEDICATIONS: 1. Hydroxyurea 500 daily and has taken two doses. 2. Alendronate 70 once a week. 3. Clonazepam 1 mg b.i.d. 4. Atenolol 50 daily. 5. Plavix 75 daily. 6. [place] 300 b.i.d. ER. 7. Lovastatin 40 q. p.m. 8. Mirtazapine 7.5 at bedtime. 9. Risperidone 0.25 at bedtime. ALLERGIES: None. SOCIAL HISTORY: Lives with her son. There is no alcohol, no tobacco use. FAMILY HISTORY: Father of colon cancer. Mother had an NM in her 70s. PHYSICAL EXAMINATION: No fever, blood pressure 111/68, O2 sats 98% on room air. Skin is warm and dry. Cranial nerves 2-12 are intact. The patient's strength in her right arm is a little bit less and there is evidence of drift down and pronator drift. Patellar reflexes were equal and symmetrical. No sensory loss. No other motor or focal motor loss either. Cerebellar testing shows significant abnormalities to finger to nose, heel to aparicio on the right side. Trying to stand the patient. She cannot maintain her balance. She can stand but falls to one side or the other. Eyes: PERRLA. EOM intact. Mouth shows adequate hydration. No bruit. Cardiac: Regular 1-2/6 systolic murmur. Lungs clear. Abdomen: Soft, nonacute, benign. Extremities showed no edema. FINAL DIAGNOSES: 1. Acute cerebrovascular accident, cerebellar and/or left motor area, present on admission. Active. Plan: The patient's Plavix will be continued, change lovastatin to atorvastatin 40. Acute stroke protocol ordered, echo ordered. Will review with Oncology concerning hydroxyurea. Physical therapy, speech therapy and occupational therapy. 2. Hypertension. Reduce atenolol to 25 daily. Monitor blood pressure. 3. Essential thrombocytosis present on admission, active. Will hold hydroxyurea and touch base with Oncology or with Hematology. 4. Bipolar. Continue lithium, mirtazapine, risperidone and check lithium level. DISPOSITION: The patient lives with her son, primary care provider is Dr. Mills, medical center manager Dr. Soto. Malik Mckay MD 01/09/17 0850 Hospital Course 1. Acute CVE, poa, improving -L frontal by MRI -suspect TIA from cerebellar area as these defects are essentially resolved -change lovastatin 40 to atorvastatin 40 -review with Oncology stock handler floorperson (hydroxyrea), will hold med for now -echo -PT, ST, OT -add 81 mg asa to plavix -Tele -Follow up with primary care provider in a few days -at time of discharge echo results are still pending, I would ask that the primary care provider review the final results when back 2.Hypertension, poa, stable -continue tenormin 3.Essential Thrombocytosis, poa, stable -reviewed with oincology stock handler floorperson -Patient does not want to take hydroxyurea any more; I have asked her to follow up very soon with her Dr. Soto to review what happened and plan further treatment for this condition, pleas call for apt tomorrow. 4. Bipolar, poa, stable -continue lithium, mirtazapine, risperidol Disposition; pcp = Dr Mills onc = Dr. Soto lives with son Exam Vital Signs (Last) Date Time Temp Pulse Resp B/P Pulse Ox O2 Delivery O2 Flow Rate FiO2 01/10/17 05:47 73 01/10/17 03:09 36.6 18 108/74 95 Room Air Test 01/08/17 13:00 01/08/17 15:20 01/10/17 05:38 Erythrocyte Sedimentation Rate 4mm/hr (0-40) Prothrombin Time 10.7sec (8.1-12.5) Prothromb Time International Ratio 1.00ratio Activated Partial Thromboplast Time 24.3sec (22.8-33.0) Total Bilirubin 0.5mg/dL (0.0-1.2) Aspartate Amino Transf (AST/SGOT) 17U/L (0-50) Alanine Aminotransferase (ALT/SGPT) 11U/L (0-32) Alkaline Phosphatase 39U/L (25-165) Troponin T < 0.010ug/L (0.0-0.011) Total Protein 6.7g/dL (6.4-8.4) Albumin 3.8g/dL (3.4-5.0) Thyroid Stimulating Hormone (TSH) 2.390uIU/mL (0.450-4.500) Free Thyroxine 1.31ng/dL (0.82-1.77) Hold Tse Top Tube Received (Received) [place] Level 0.9mEq/L (0.5-1.5) Urine Color Straw (YELLOW) Urine Appearance Clear (CLEAR,HAZY) Urine pH 6.0 (5.0-8.0) Urine Specific [place] 1.006 (1.003-1.035) Urine Protein Negativemg/dL (NEG,TRACE) Urine Glucose (UA) Negativemg/dL (NEGATIVE) Urine Ketones Negativemg/dL (NEGATIVE) Urine Occult Blood Negative (NEGATIVE) Urine Nitrite Negative (NEGATIVE) Urine Bilirubin Negative (NEGATIVE) Urine Urobilinogen Normalmg/dL (NORMAL) Urine Leukocyte Esterase Negative (NEGATIVE) Urine RBC 0-2/hpf (0-2) Urine WBC 0-5/hpf (0-5) Urine Epithelial Cells Occasional/hpf (NONE-MOD) Urine Crystals None seen (NONE SEEN) Urine Bacteria None/hpf (NONE-FEW) Urine Hyaline Casts None/lpf (NONE) Urine Granular Casts None seen (NONE SEEN) Urine Waxy Casts None seen (NONE SEEN) Urine Red Blood Cell Casts None seen (NONE SEEN) Urine White Blood Cell Casts None seen (NONE SEEN) Urine Mucus None seen (None Seen) Urine Trichomonas None seen (NONE SEEN) Urine Yeast None (NONE SEEN) Urinalysis Comment Urine Culture Reflexed Not indicated White Blood Count 10.2th/mm3 (3.8-10.1) Red Blood Count 4.69mil/mm3 (3.90-5.20) Hemoglobin 13.9g/dL (12.0-15.6) Hematocrit 42.5% (35.0-46.0) Mean Corpuscular Volume 90.6fL (81-100) Mean Corpuscular Hemoglobin 29.6pg (27.0-35.0) Mean Corpuscular Hemoglobin Concent 32.7% (32.0-37.0) Red Cell Distribution Width 14.7% (12.3-15.4) Platelet Count 805bil/L (150-400) Neutrophils (%) (Auto) 64.0% (40-74) Lymphocytes (%) (Auto) 22.9% (14-46) Monocytes (%) (Auto) 9.5% (4-12) Eosinophils (%) (Auto) 2.6% (0-5) Basophils (%) (Auto) 0.8% (0-3) Sodium Level 141mEq/L (134-144) Potassium Level 5.2mEq/L (3.5-5.2) Chloride Level 105mEq/L (97-108) Carbon Dioxide Level 24mmol/L (18-29) Blood Urea Nitrogen 20mg/dL (8-27) Creatinine 0.90mg/dL (0.57-1.00) Estimat Glomerular Filtration Rate 87mL/min (>59) Glucose Level 103mg/dL (60-99) Calcium Level 10.1mg/dL (8.5-10.1) Discharge Medications Discharge Medications Aspirin (Aspirin) 81 Mg Tablet 81 MG PO DAILY Prescribed by: Malik MCKAY MD Atenolol (Atenolol) 50 Mg Tablet 50 MG PO QAM (Reported) Atorvastatin Calcium (Atorvastatin Calcium) 10 Mg Tablet 40 MG PO HS Prescribed by: Malik MCKAY MD Cholecalciferol (Vitamin D3) (Vitamin D) 1,000 Unit Capsule 1,000 UNIT PO QAM ( Reported) Clonazepam (Clonazepam) 1 Mg Tablet 1 MG PO BID Prescribed by: TIMOTHY MO MD Clopidogrel Bisulfate (Plavix) 75 Mg Tablet 75 MG PO DAILY Prescribed by: Malik MCKAY MD [place] Carbonate ([place] Carbonate) 300 Mg Tablet.er 300 MG PO BID Prescribed by: TIMOTHY MO MD Mirtazapine (Mirtazapine) 7.5 Mg Tablet 7.5 MG PO HS (Reported) Risperidone (Risperdal) 1 Mg Tablet 0.25 MG PO HS Prescribed by: WILMAN LECHUGA MD As needed Tramadol (Tramadol) 50 Mg Tablet 50 MG PO Q6 PRN PRN For Pain (Reported) Followup Plan Follow-up plan I amber like you to call Dr Soto Wednesday morning to make an appointment to see him; need to discuss the hyroxyurea and plan for treating your essential thrombocytosis. Pleas also follow up with your primary care provider soon. Discharge Diet: Heart Healthy Discharge Activity: Limited until seen by PCP Time spent 40 minutes time spent discharging patient home so far today copies to: Brian Stephen MD; Ga Mills MD, D Geoffrey MD January 10, 2017 10:01
[2017-01-10 10:22] VITALS: BP 110/74; PULSE 77; RESP 16; O2SAT 93
--- NOTE | 2017-01-10 14:58 | DRSVH ---
[facility] [address] [place] [address] Echocardiogram Report Name: ALEC STRATTON JStudy Date : 01/10/2017 Height: 63 in Hospital Exam Location: [facility] Weight: 105 lb Gender: Female BSA: 1.5 m2 : 1940 Age: 76 yrs BP: 108/74 mmHg Reason For Study: CVA Ordering Physician: CLAUDIO CARLSON Performed By: Javon Lo Referring Physician: Dr. Ga Mills Interpretation Summary The left ventricle is normal in size, wall thickness, and systolic function without any focal wall motion abnormalities with the ejection fraction visually estimated to be 60-65%. Assessment of diastolic parameters indicates a relaxation abnormality of the left ventricle, consistent with normal filling pressures. There has been no significant change since the previous study. The right ventricle is normal in size and function and is unchanged compared to the previous study. The right ventricular systolic pressure is estimated at 20 mmHg assuming a right atrial pressure of 3 mm Hg; comparison with the previous study is not possible because this was unable to be assessed on the previous study. Both atria are normal in size and are unchanged compared to the previous study. The interatrial septum is intact with no Doppler evidence for an atrial septal defect. There is no significant valvular heart disease. Procedure: A two-dimensional transthoracic echocardiogram with color flow and Doppler was performed. The study quality was technically adequate. Comparison is made with the echocardiogram of 01/22/15. The patient was in normal sinus rhythm during the exam. Left Ventricle: The left ventricle is normal in size, wall thickness, and systolic function without any focal wall motion abnormalities. The ejection fraction is estimated to be 60-65%. Assessment of diastolic parameters indicates a relaxation abnormality of the left ventricle, consistent with normal filling pressures. There has been no significant change since the previous study. Right Ventricle: The right ventricle is normal in size and function. This is unchanged compared to the previous study. Atria: Both atria are normal in size. This is unchanged compared to the previous study. The interatrial septum is intact with no evidence for an atrial septal defect. There is no Doppler evidence for an atrial septal defect. Mitral Valve: The mitral valve leaflets appear moderately thickened, but open well. The mitral valve leaflets are slightly calcified. There is trace mitral regurgitation. This is unchanged compared to the previous study. Aortic Valve: The aortic valve is trileaflet. The aortic valve is slightly calcified. The aortic valve opens well. No aortic regurgitation is present. Tricuspid Valve: The tricuspid valve is normal in structure and function. There is trace tricuspid regurgitation. The right ventricular systolic pressure is estimated at 20 mmHg assuming a right atrial pressure of 3 mm Hg. Comparison with the previous study is not possible because this was unable to be assessed on the previous study. Pulmonic Valve: The pulmonic valve is not well seen, but is grossly normal. There is no pulmonic valvular regurgitation. There is no significant valvular heart disease. Great Vessels: The aortic root is normal size. The dimensions of the ascending aorta are normal. The pulmonary artery is normal size. The IVC is of normal diameter and collapses greater than 50% with a sniff. This suggests a low right atrial pressure of 3 mm Hg. Pericardium/ Pleura There is no pericardial effusion. There is no pleural effusion. MMode/2D Measurements & Calculations LVIDd: 3.7 cm LA dimension: 4.2 cm RA long axis Ao root diam LVIDs: 2.1 cm FS: 43.1 % LA A2 area: 16.4 cm RA area Aortic Jxn EPSS: 0.32 cm LA A4 area: 17.8 cm IVSd: 0.93 cm LA length (vol): 5.0 cm : 10.2 cm asc Aorta LVPWd: 0.85 cm LA vol: 49.7 ml RA vol: 21.3 mlDiam: 2.8 cm LA vol index RA : 14.5 mm2 IVC diam: 1.1 cm LV tsang. diameter/BSA LV sys. diameter/BSA (cm/m^2): 2.5 (cm/m^2): 1.4 Doppler Measurements & Calculations Ao V2 max MV E max luis MV E/A: 0.89 TR max luis: 204.2 cm/sec : 93.3 cm/sec : 39.4 cm/sec Med Peak E' Luis TR max P.7 mmHg Ao max PG MV A max luis PA V2 max: 67.2 cm/sec : 3.5 mmHg : 44.4 cm/sec E/E' med: 12.0 PA mean P.1 mmHg Ao mean PG Pulm A Revs Dur PA Accel Time: 0.10 sec : 1.8 mmHg MV A dur: 0.10 sec MV dec time Ao V2 mean PA V2 mean Pulm A Revs Dur - MV A : 0.24 sec : 63.9 cm/sec : 50.4 cm/sec Dur: 0.02 msec Ao V2 VTI : 13.6 cm Reading Physician:02:[id number] PM
--- NOTE | 2017-01-10 15:21 | NUR ---
Discharge Discharged home in the care of son. Patient left floor via w/c, escorted by PRIMARY MILL ROLLER with all personal belongings. Discharge teaching performed; pt. said she was comfortable with her plan of care NAIDA. Patient articulated plans to contact family physician wednesday morning.
== END 2017-01-10 14:30 | disposition home or self-care (01) | DRG 65 ==
LOC: SED 12:47 → OBSVTOIN 15:08 → MPC 15:08
PROVIDERS: ADMIT Hospitalist; ATTEND Hospitalist
DX: I63.9 Cerebral infarction, unspecified (principal); G81.91 Hemiplegia, unspecified affecting right dominant side; I10 Essential (primary) hypertension; D47.3 Essential (hemorrhagic) thrombocythemia; F31.9 Bipolar disorder, unspecified; R40.2362 Coma scale, best motor response, obeys commands, at arrival to emergency department; R40.2142 Coma scale, eyes open, spontaneous, at arrival to emergency department; R40.2252 Coma scale, best verbal response, oriented, at arrival to emergency department; Z79.82 Long term (current) use of aspirin

== ENCOUNTER 2017-02-02 18:24 | Emergency (ER) | payer MEDICARE, MEDICAID ==
[~2017-02-02 18:24] MED LIST changes: -ALEN70TA2 PO; -AMOX-366 PO; +ASPI-973 PO; -CLON0.5T PO; -LOVA40TA PO; -OMEP20CA11 PO
--- NOTE | 2017-02-02 18:28 | ED.REPORT ---
HPI-Neurologic Deficit Date of Service Feb 02, 2017 ED Provider: Rashi Cornell DO Patient is a 76 year old female with a history of hospitalization for a CVA on who presents to the ED via EMS due to an alerted mental status onset 1730. Per the patient's son, the patient was unable to speak to him with her last known normal at 1800. When EMS arrived, the patient was unresponsive. Per EMS, the patient had a normal blood sugar and had a forced gaze deviation to the left. Patient is currently on Plavix from her last stroke. Nursing Notes Stated Complaint: RULE OUT STROKE Chief Complaint: Stroke Symptoms Nursing Notes Reviewed: Yes Allergies: Coded Allergies: No Known Allergies (Verified Allergy, Unknown, 02/02/17) Scheduled Aspirin (Aspirin) 81 Mg Tablet 81 MG PO DAILY Atenolol (Atenolol) 50 Mg Tablet 50 MG PO QAM Cholecalciferol (Vitamin D3) (Vitamin D) 1,000 Unit Capsule 1,000 UNIT PO QAM Clonazepam (Clonazepam) 1 Mg Tablet 1 MG PO BID Clopidogrel Bisulfate (Plavix) 75 Mg Tablet 75 MG PO DAILY [place] Carbonate ([place] Carbonate) 300 Mg Tablet.er 300 MG PO BID Mirtazapine (Mirtazapine) 7.5 Mg Tablet 7.5 MG PO HS Risperidone (Risperdal) 1 Mg Tablet 0.25 MG PO HS Scheduled PRN Tramadol (Tramadol) 50 Mg Tablet 50 MG PO Q6 PRN PRN For Pain General Time Seen by Provider: 18:23 Chief Complaint Mental status change Hx Obtained From: Son, EMS Unable to Obtain Hx: Patient condition Arrived By: Ambulance Sudden in Onset?: Yes Onset Occurred: Just prior to arrival Symptom Duration: Since onset Progression Since Onset: Unchanged Associated with: Reports: Bladder incontinence Related History: Reports: CVA/TIA, Hypertension Recent Healthcare: Recent doctor visit, Recent hospitalization Similar Sx Previous: Yes Risk Factors NIH Stroke Scale Level of Consciousness: Arouse by repeat stim (2) Ask Month & Age: Aphasic (2) Open/Close Eyes/Hand Exotic Dancer: Performs 1 task (1) Horizontal EO Movements: Tot/forced gaze pares (2) Visual Manrique: Complete hemianopsia (2) Facial Palsy: Normal symmetry (0) Right Arm Motor Drift (10s): No effort, limb fails (3) Left Arm Motor Drift (10s): No effort, limb fails (3) Right Leg Motor Drift (5s): No effort, limb fails (3) Left Leg Motor Drift (5s): No effort, limb fails (3) Limb Ataxia FNF/Heel-Fuentes: Untestable (0) Sensation (Arms/Legs/Face): Coma / unresponsive (2) Language Aphasia: No aud comprehension (3) Dysarthria: Untestable (0) Extinction/Inattention: Prfound david-inattent (2) NIHSS Score: 27 Time NIHSS Performed: 18:37 Date NIHSS Performed: Feb 02, 2017 CVA Risk Stratification Age >60 Hypertension Prior CVA/TIA RF Statements: Risk factors reviewed Past Medical History Past Medical History CVA dementia diverticulitis Prediabetes Back pain Osteoporosis Allergic rhinitis Actinic keratosis CVD Bipolar disorder Parasomnia Thrombocytosis Reports: Hypertension Past Surgical History elbow surgery Reports: Hysterectomy Smoking History Never Smoker Social History Alcohol Use: Denies alcohol use Drug Use: Denies drug use Other Social History: Good social support, Lives with children Occupation lives with son. 12/22/2016 Ambulatory Status Independent Review of Systems Unable to Obtain ROS Patient condition, Mental status, Intubated Physical Exam Initial Vital Signs Vital Signs (First) Date Time Temp Pulse Resp B/P Pulse Ox O2 Delivery O2 Flow Rate FiO2 02/02/17 18:30 36.8 70 20 127/69 96 Nasal Cannula 2 Initial VS: Reviewed Alertness: Positive: Unresponsive HEAD/EYES: nystagmus forced gaze deviation to the left Respiratory / Chest: Atraumatic, No respiratory distress (however she did have sonorous respirations) Cardiovascular: Heart rate NL, Regular rhythm, Heart sounds NL Mental Status: Positive: Unresponsive ENT: Airway patent, Mucous membranes moist, Pharynx NL Neck: Atraumatic, Supple Abdomen: Atraumatic, Soft, Non-tender Skin: Color NL, No rash, Warm, Dry Interpretation & Diagnostics Lab Results Interpretation Result Diagram: 02/02/17181902/02/171819 Test 02/02/17 18:20 White Blood Count 10.4th/mm3 (3.8-10.1) Red Blood Count 4.35mil/mm3 (3.90-5.20) Hemoglobin 13.1g/dL (12.0-15.6) Hematocrit 40.7% (35.0-46.0) Mean Corpuscular Volume 93.6fL (81-100) Mean Corpuscular Hemoglobin 30.1pg (27.0-35.0) Mean Corpuscular Hemoglobin Concent 32.2% (32.0-37.0) Red Cell Distribution Width 16.0% (12.3-15.4) Platelet Count 679bil/L (150-400) Neutrophils (%) (Auto) 64.9% (40-74) Lymphocytes (%) (Auto) 23.8% (14-46) Monocytes (%) (Auto) 7.9% (4-12) Eosinophils (%) (Auto) 2.2% (0-5) Basophils (%) (Auto) 0.8% (0-3) Prothrombin Time 10.7sec (8.1-12.5) Prothromb Time International Ratio 1.00ratio Sodium Level 140mEq/L (134-144) Potassium Level 3.9mEq/L (3.5-5.2) Chloride Level 108mEq/L (97-108) Carbon Dioxide Level 22mmol/L (18-29) Blood Urea Nitrogen 11mg/dL (8-27) Creatinine 0.90mg/dL (0.57-1.00) Estimat Glomerular Filtration Rate 87mL/min (>59) Glucose Level 119mg/dL (60-99) Calcium Level 9.8mg/dL (8.5-10.1) Total Bilirubin 0.5mg/dL (0.0-1.2) Aspartate Amino Transf (AST/SGOT) 16U/L (0-50) Alanine Aminotransferase (ALT/SGPT) 13U/L (0-32) Alkaline Phosphatase 37U/L (25-165) Troponin T < 0.010ug/L (0.0-0.011) Total Protein 6.3g/dL (6.4-8.4) Albumin 3.7g/dL (3.4-5.0) [place] Level 1.2mEq/L (0.5-1.5) Pulse Oximetry Interpretation Pulse Oximetry: Pulse Ox normal (98% on room air) ECG Interpretation ECG Interpretation: normal ST segments Time: 18:40 Normal ECG Interpretation: Normal rate (77), Normal sinus rhythm Rhythm Strip Interpretation : Time: 18:50 Rhythm Strip Interpretation: Interpreted by me, Rate (78), Normal sinus rhythm CBC Interpretation WBC elevated, Platelets elevated BMP / CMP Interpretation BMP/CMP normal Cardiac / Vascular Interp Cardiac markers normal X-Ray Chest Interpretation Chest Xray Interpretation: IMPRESSION: No acute cardiopulmonary disease. Dictated by: Pebbles Harry M.D. on 02/02/2017 at 19:30 Approved by: Pebbles Harry M.D. on 02/02/2017 at 19:31 View: Portable, 1 view Interpretation / Wet Read by: Interpret - Radiologist Chest Xray Interpretation: IMPRESSION: Endotracheal tube is 2.8 cm above leena. Dictated by: Pebbles Harry M.D. on 02/02/2017 at 19:50 Approved by: Pebbles Harry M.D. on 02/02/2017 at 19:51 View: Portable, 1 view Interpretation / Wet Read by: Interpret - Radiologist CT Head Interpretation IMPRESSION: 1. No acute intracranial abnormalities. 2. Old left frontal infarct with encephalomalacia and old lacunar infarct in the left basal ganglia. 3. Cerebral volume loss and chronic microvascular ischemic changes. This study fulfills neurological imaging criteria for inclusion or exclusion of acute stroke therapies based on available published neurological guidelines. Dictated by: Pebbles Harry M.D. on 02/02/2017 at 18:34 Approved by: Pebbles Harry M.D. on 02/02/2017 at 18:45 Interpretation / Wet Read by: Interpret - Radiologist Procedures Intubation Time: 19:16 Procedure Performed by: ED physician Consent / Setup / Site Prep: Consent from retail performance coach (from power of real estate attorney) , Time-out performed, Oxygen administered, Pulse oximeter applied, panel monitor applied, Hand hygiene observed Patient Position: Sniff position Blade / ET Tube / Route: [place] scope, Route: oral Procedural Sedation/Analgesia: Sedation: Etomidate Neuromuscular Agent: Succinylcholine ET Confirmation: Direct visualization, BS equal, End tidal CO2 device, CXR, Rising O2 sat Secured / Marked: ET tube device Complications: None Post-Procedure: Condition improved, Tolerated procedure well, Patient stable Re-Eval/Medical Decision Med Decision/Clinical Course Patient arrived to the ED unresponsive with last known normal at 1800. Her NIH score was at least 27 and her GCS was 4. Due to her recent stroke on 01/08/17 we did not administer TPA. Consulted with Dr. Montemayor at [facility] who recommended the patient be intubated and transferred. Around 1855 the patient had minimal movement of her left side but was still unresponsive. Discussed plan for intubation and transfer to [facility] with power of real estate attorney. Patient presents with dense hemiparesis on the right and forced gaze deviation to the left. She seems to have inattention of the entire right side of her body as well. No evidence that there is any sensory input being received on the right side of her body whatsoever. Initially she had no movement on her left side however I did watch her lift her left leg and crossover right leg. She was moving her left arm prior to intubation. She would not speak. She seemed to be protecting her airway however she developed sonorous respirations. I consulted with Dr. Montemayor. She recommends intubation and critical transport to [facility] for possible neuro intervention. Tori is not a candidate for TPA due to the recent MRI proven stroke she suffered in December. Her sister Rohini arrived. He is her power of real estate attorney. Rohini would like us to proceed with the intubation and transfer for any care that may improve read as quality of life. No problems with the intubation. She was successfully sedated with propofol postintubation. Postintubation chest x-ray looked good. She seemed to be oxygenating and ventilating well. Air med arrived and she was transferred in critical condition. Source of Hx: Old records Re-Evaluation/Progress #1: Time of Eval: 18:45 Re-Evaluation/Progress Note: Discussed code status with the patient's son who believes the patient is no code. Re-Evaluation/Progress #2: Time of Eval: 18:55 Re-Evaluation/Progress Note: Patient was able to move her left arm and cross her left leg over midline. The patient would like to wait to intubate until the patient's power of real estate attorney is here. Re-Evaluation/Progress #3: Time of Eval: 19:04 Re-Evaluation/Progress Note: Discussed plan to intubate and transfer. Power of real estate attorney agrees to the plan. Consultation : Referral / Consult Name: Yoly Montemayor MD Consulted With: Neurology Call Returned at: 18:50 Financial Services Consultant: Agrees with eval, Agrees with plan, Accepts admit Note: Consult with Dr. Montemayor , who recommends the patient be intubated and transferred to [facility]. Counseled Regarding: Diagnosis, Lab results, Need for transfer Discharge & Departure Impression: Primary Impression: Cerebrovascular accident CVA mechanism: unspecified Qualified Code: I63.9 - Cerebral infarction, unspecified Disposition: Transfer, Acute Care Facility Discharge Condition All VS Reviewed: Yes Condition: Stable Referrals: Ga Mills MD (PCP) Crit Care Except Billable Proc Time Spent: 105-134 minutes Services Performed: Patient management by me, Time spent at bedside, Reviewing test results, Reviewing imaging, Discussing patient care, Documentation in record, Time with fam/surrogate Scribe Attestation Portions of this note were transcribed by Payal Reyes. I, Dr. Cornell personally performed the history, physical exam and medical decision-making; I reviewed and confirmed the accuracy of the information in the transcribed note. Signed by: Ralph Zuniga, 02/02/17 and 1915 copies to: Ga Mills MD, Todd P DO Feb 02, 2017 18:28 Megan Reyes Feb 02, 2017 18:35
[2017-02-02 18:30] VITALS: BP 127/69; PULSE 70; RESP 20; O2SAT 96
[2017-02-02 18:40] LABS: BASOPHILS % (AUTO) 0.8 % (0-3); EOSINOPHILS % (AUTO) 2.2 % (0-5); MONOCYTES % (AUTO) 7.9 % (4-12); Mean Corpuscular Hemoglobin 30.1 pg (27.0-35.0); Mean Corpuscular Volume 93.6 fL (81-100); NEUTROPHILS % (AUTO) 64.9 % (40-74); Platelet Count 679 bil/L (150-400)
[2017-02-02] MEDS ORDERED: Propofol 10,000 mCg/mL 20 mL Inj ONE (18:43)
[2017-02-02] MEDS ORDERED: Succinylcholine Chloride 20 mg/mL 5 mL Inj ONE (18:43)
[2017-02-02 18:45] VITALS: BP 127/65; PULSE 68; RESP 23; O2SAT 99
--- NOTE | 2017-02-02 18:46 | DRSVH ---
PROCEDURE: CT BRAIN (TPA) ([id number]) INDICATIONS: RIGHT SIDED WEAKNESS, STROKE PROTOCOL TECHNIQUE: Noncontrast 4.5 mm thick angled axial sections acquired from the foramen magnum to the vertex, with c oronal reformats. COMPARISON: [facility], CT, BRAIN (TPA), 01/08/2017, 13:04. FINDINGS: Image quality: Excellent. CSF spaces: Basal cisterns are patent. No extra-axial fluid collections. The ventricles are symmet luiz in size and shape. Brain: There is an old left frontal infarct with encephalomalacia. A tiny lacunar infarct is seen th e left basal ganglia. No intracranial bleeds or masses. There is mild cerebral volume loss for age, with resultant ventricular and sulcal prominence. There are [id number] periventricular and wilson p white matter chronic small vessel ischemic changes. There is intracranial internal carotid artery atherosclerosis. Skull and face: Calvarium and visualized facial bones appear intact, without suspicious lesions. Sinuses: Visualized sinuses and mastoids are clear. IMPRESSION: 1. No acute intracranial abnormalities. 2. Old left frontal infarct with encephalomalacia and old lacunar infarct in the left basal ganglia. 3. Cerebral volume loss and chronic microvascular ischemic changes. This study fulfills neurological imaging criteria for inclusion or exclusion of acute stroke therapie s based on available published neurological guidelines. Dictated by: Pebbles Harry M.D. on 02/02/2017 at 18:34 Approved by: Pebbles Harry M.D. on 02/02/2017 at 18:45
[2017-02-02 19:07] LABS: TROPONIN T < 0.010 ug/L (0.0-0.011)
[2017-02-02 19:11] VITALS: BP 126/75; PULSE 65; RESP 20; O2SAT 98
--- NOTE | 2017-02-02 19:33 | DRSVH ---
PROCEDURE: X-RAY CHEST ONE VIEW, PORTABLE ([id number]) INDICATIONS: stroke and coma TECHNIQUE: One view of the chest was acquired. COMPARISON: [facility], CR, XR CHEST 1VW (PORTABLE), 10/16/2015, 10:08. FINDINGS: Surgical changes and devices: None. Lungs and pleura: No pleural effusions or pneumothorax. Lungs are clear. Mediastinum: Mediastinal contours appear normal. Heart size is normal. Bones and chest wall: No suspicious bony lesions. Overlying soft tissues appear unremarkable. Old r ight rib fractures are noted. IMPRESSION: No acute cardiopulmonary disease. Dictated by: Pebbles Harry M.D. on 02/02/2017 at 19:30 Approved by: Pebbles Harry M.D. on 02/02/2017 at 19:31
[2017-02-02 19:43] VITALS: BP 126/75; PULSE 70; RESP 18; O2SAT 100
[2017-02-02 19:45] VITALS: O2SAT 99
--- NOTE | 2017-02-02 19:53 | DRSVH ---
PROCEDURE: X-RAY CHEST ONE VIEW, PORTABLE ([id number]) INDICATIONS: post intubation TECHNIQUE: One view of the chest was acquired. COMPARISON: [facility], MR, MR BRAIN WO CON, 01/08/2017, 17:01. [facility], CR, XR CHEST 1VW (PORTABLE), 02/02/2017, 18:50. FINDINGS: Surgical changes and devices: There is a ventricular tube 2.8 cm above leena.. Lungs and pleura: No pleural effusions or pneumothorax. There is left basilar atelectasis. Mediastinum: Mediastinal contours appear normal. Heart size is normal. Bones and chest wall: No suspicious bony lesions. Overlying soft tissues appear unremarkable. IMPRESSION: Endotracheal tube is 2.8 cm above leena. Dictated by: Pebbles Harry M.D. on 02/02/2017 at 19:50 Approved by: Pebbles Harry M.D. on 02/02/2017 at 19:51
[2017-02-02 20:15] VITALS: BP 126/75; PULSE 70; RESP 18; O2SAT 99
== END 2017-02-02 20:00 | disposition short-term general hospital (02) ==
LOC: SED 18:42
DX: I63.9 Cerebral infarction, unspecified (principal); F31.9 Bipolar disorder, unspecified; F03.90 Unspecified dementia, unspecified severity, without behavioral disturbance, psychotic disturbance, mood disturbance, and anxiety; I10 Essential (primary) hypertension; Z86.73 Personal history of transient ischemic attack (TIA), and cerebral infarction without residual deficits; Z79.82 Long term (current) use of aspirin; Z79.01 Long term (current) use of anticoagulants
CPT/HCPCS: 31500; 36415; 70450; 71010; 80053; 80178; 82948; 84484; 85025; 85610; 93005; 94002; 94799; 99291; 99292; J0330

== ENCOUNTER 2017-03-01 16:22 | Emergency (ER) | payer MEDICARE, MEDICAID ==
[2017-03-01 16:24] VITALS: BP 125/75; PULSE 84; RESP 18; O2SAT 95
--- NOTE | 2017-03-01 16:52 | ED.REPORT ---
HPI-General Illness Date of Service Mar 01, 2017 ED Provider: Dr. Nicholas Pt is a 76 year old female with a hx of recent CVA (3 weeks ago) and dementia presenting to the ED via EMS from [facility] complaining of abdominal swelling onset 2 days ago. Today, her son noted that she had a tight, distended abdomen. Pt has residual right sided weakness and is nonverbal s/p recent CVA. Unable to obtain further history from the patient secondary to her condition. Nursing Notes Stated Complaint: BOWEL OBSTRUCTION Chief Complaint: Female Abdominal Pain Nursing Notes Reviewed: Yes Allergies: Coded Allergies: No Known Allergies (Verified Allergy, Unknown, 03/01/17) Scheduled Aspirin (Aspirin) 81 Mg Tablet 81 MG PO DAILY Atenolol (Atenolol) 50 Mg Tablet 50 MG PO QAM Cholecalciferol (Vitamin D3) (Vitamin D) 1,000 Unit Capsule 1,000 UNIT PO QAM Clonazepam (Clonazepam) 1 Mg Tablet 1 MG PO BID Clopidogrel Bisulfate (Plavix) 75 Mg Tablet 75 MG PO DAILY [place] Carbonate ([place] Carbonate) 300 Mg Tablet.er 300 MG PO BID Mirtazapine (Mirtazapine) 7.5 Mg Tablet 7.5 MG PO HS Risperidone (Risperdal) 1 Mg Tablet 0.25 MG PO HS Scheduled PRN Tramadol (Tramadol) 50 Mg Tablet 50 MG PO Q6 PRN PRN For Pain General Time Seen by MD: 16:52 Chief Complaint Other (Abdominal distention) Hx Obtained From: EMS Unable to Obtain Hx: Patient condition Arrived By: Ambulance Sudden in Onset?: No Onset Occurred: Just prior to arrival Symptom Duration: Since onset Recent Healthcare: No recent doctor visit, Recent hospitalization Similar Sx Previous: No Past Medical History Past Medical History 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 12/22/2016 Ambulatory Status Independent Review of Systems Unable to Obtain ROS Patient condition Physical Exam Nursing note and vitals reviewed. Constitutional: Well-developed, well-nourished female lying in bed. Not diaphoretic. Head: Normocephalic and atraumatic. Mouth/Throat: Oropharynx is clear and moist. No oropharyngeal exudate. Eyes: Pupils are equal, round, and reactive to light. Neck: Supple, no tracheal deviation. Cardiovascular: Normal rate, regular rhythm. Equal and intact distal pulses throughout. Pulmonary/Chest: Effort normal and breath sounds normal. No respiratory distress. Abdominal: Distended, firm abdomen. Tenderness to palpation of lower abdomen. Bowel sounds present. No peritoneal signs. Musculoskeletal: No obvious injuries. No tenderness appreciated. Neurological: Not following commands-at baseline according to family; nonverbal. She has normal muscle tone. Responds to pain. Skin: Warm and dry, no rashes or pallor appreciated. Healing ecchymosis to abdomen where she was having Heparin injections. Psychiatric: Unable to assess secondary to patient's condition. Vital Signs Vital Signs Date Time Temp Pulse Resp B/P Pulse Ox O2 Delivery O2 Flow Rate FiO2 03/02/17 00:27 36.6 80 11 110/74 100 Room Air 03/01/17 21:11 78 12 108/60 100 Room Air 03/01/17 18:40 89 109/76 97 Room Air 03/01/17 17:40 86 123/70 94 Room Air 03/01/17 16:24 36.8 84 18 125/75 95 Room Air Initial VS: Reviewed Interpretation & Diagnostics Lab Results Interpretation Result Diagram: 03/01/17 1739 03/01/17 1739 Test 03/01/17 17:39 03/01/17 18:08 03/01/17 18:10 White Blood Count 5.1th/mm3 (3.8-10.1) Red Blood Count 4.26mil/mm3 (3.90-5.20) Hemoglobin 13.9g/dL (12.0-15.6) Hematocrit 43.0% (35.0-46.0) Mean Corpuscular Volume 100.9fL (81-100) Mean Corpuscular Hemoglobin 32.6pg (27.0-35.0) Mean Corpuscular Hemoglobin Concent 32.3% (32.0-37.0) Red Cell Distribution Width 21.8% (12.3-15.4) Platelet Count 374bil/L (150-400) Neutrophils (%) (Auto) 58.1% (40-74) Lymphocytes (%) (Auto) 30.5% (14-46) Monocytes (%) (Auto) 8.6% (4-12) Eosinophils (%) (Auto) 1.6% (0-5) Basophils (%) (Auto) 0.8% (0-3) Sodium Level 142mEq/L (134-144) Potassium Level 4.9mEq/L (3.5-5.2) Chloride Level 105mEq/L (97-108) Carbon Dioxide Level 24mmol/L (18-29) Blood Urea Nitrogen 44mg/dL (8-27) Creatinine 0.78mg/dL (0.57-1.00) Estimat Glomerular Filtration Rate 103mL/min (>59) Glucose Level 120mg/dL (60-99) Lactic Acid Level 1.4mmol/L (0.4-2.0) Calcium Level 11.4mg/dL (8.5-10.1) Magnesium Level 2.8mg/dL (1.6-2.6) Total Bilirubin 0.6mg/dL (0.0-1.2) Aspartate Amino Transf (AST/SGOT) 30U/L (0-50) Alanine Aminotransferase (ALT/SGPT) 37U/L (0-32) Alkaline Phosphatase 50U/L (25-165) Total Protein 7.1g/dL (6.4-8.4) Albumin 3.7g/dL (3.4-5.0) Lipase 56U/L (13-60) Hold Urine Received (Received) Urine Color Yellow (YELLOW) Urine Appearance Clear (CLEAR,HAZY) Urine pH 5.0 (5.0-8.0) Urine Specific [place] 1.030 (1.003-1.035) Urine Protein 100mg/dL (NEG,TRACE) Urine Glucose (UA) 250mg/dL (NEGATIVE) Urine Ketones Negativemg/dL (NEGATIVE) Urine Occult Blood Large (NEGATIVE) Urine Nitrite Negative (NEGATIVE) Urine Bilirubin Negative (NEGATIVE) Urine Urobilinogen Normalmg/dL (NORMAL) Urine Leukocyte Esterase Negative (NEGATIVE) Urine RBC 3-10/hpf (0-2) Urine WBC 0-5/hpf (0-5) Urine Epithelial Cells None/hpf (NONE-MOD) Urine Crystals None seen (NONE SEEN) Urine Bacteria Few/hpf (NONE-FEW) Urine Hyaline Casts None/lpf (NONE) Urine Granular Casts None seen (NONE SEEN) Urine Waxy Casts None seen (NONE SEEN) Urine Red Blood Cell Casts None seen (NONE SEEN) Urine White Blood Cell Casts None seen (NONE SEEN) Urine Mucus None seen (None Seen) Urine Trichomonas None seen (NONE SEEN) Urine Yeast None (NONE SEEN) Urinalysis Comment None Urine Culture Reflexed Not indicated ECG Interpretation ECG Interpretation: As advertised. Sinus rhythm. No significant change from previous. Time: 18:09 Interpreted by: ED physician Normal ECG Interpretation: Normal rate (86) X-Ray Chest Interpretation Chest Xray Interpretation: IMPRESSION: No acute cardiopulmonary disease Dictated by: Andre Gonzales M.D. on 03/01/2017 at 19:16 View: Portable, 1 view Interpretation / Wet Read by: Interpret - Radiologist CT Abd / Pelvis Interpretation IMPRESSION: Severe bladder distention as above, with associated mild bilateral hydronephrosis. No specific visualized etiology. Please correlate clinically for bladder outlet obstruction. Large amount of stool seen in the rectal vault, concerning for fecal impaction. Please correlate clinically. Dictated by: Andre Gonzales M.D. on 03/01/2017 at 21:28 Study type: Abdominal CT IV contrast Interpretation / Wet Read by: Interpret - Radiologist Re-Eval/Medical Decision Med Decision/Clinical Course 76-year-old female with recent CVA leaving her nonverbal, currently living in a nursing facility, presenting to the ED for evaluation of lower abdominal swelling over the past day. Vital signs grossly within normal limits. She does have some tenderness to palpation in the lower part of her abdomen, marked swelling. A CT scan was obtained and demonstrates a markedly distended bladder with mild hydronephrosis, no obvious etiology including no evidence of obstruction, stone. She does have a large volume of stool in the rectum; fleets enema given with good results, soft stool output. Labs reviewed; no evidence of UTI on UA. Lactic acid 1.4. CBC grossly within normal limits. She does have a mildly elevated magnesium, however I do not think this is contributing to her current clinical picture. A Qiu catheter was placed here in the emergency department with nearly 2 L of urine output and resolution of her lower abdominal swelling. Unclear etiology for her acute urinary retention at this time; her urinary retention has only been present for the last several days at worst, as she has been urinating previously without difficulty, including after her CVA. It is possible that this is related to her CVA, however given that she has had normal urinary output and the intervening period , this seems somewhat less likely. I discussed this with the patient's sisters , who are at bedside. I do feel that it is reasonable to discharge her and have her follow-up tomorrow with the physician at her nursing facility for further management and evaluation of her acute urinary retention, constipation. I am sending her out with a Qiu catheter for now as she is unable to communicate verbally and I do not want her to be in a position where this happens again, however I called the nursing facility (as well as discussing with the family) and emphasized the need for evaluation by a physician in the next 1-2 days as I do not want this to be left in long-term secondary to the risks associated with long-term catheterization. Observed in the ED for several hours after catheterization to ensure no hypotension. Patient tolerated well. Time of Eval: 18:43 Patient Status: Condition improved Re-Evaluation/Progress Note: Discussed the pt's condition with her family. Time of Eval: 23:28 Patient Status: Condition improved Re-Evaluation/Progress Note: Discussed CT results and plan for consultation with the care home. Family understands and agrees. Time of Eval: 00:09 Patient Status: Condition improved Re-Evaluation/Progress Note: Discussed consultation with care home and plan for discharge. Family understands and agrees. Consultation : Call Returned at: 00:06 Note: Spoke to the pt's care home to facilitate follow up. They will call in their physician in the morning to investigate urinary retention and follow up to ensure qiu can be removed. Counseled Regarding: Diagnosis, Lab results, Need for follow-up, When/why to return to ED Discharge & Departure Primary Impression: Urinary retention Additional Impression: Constipation Constipation type: unspecified constipation type Qualified Code: K59.00 - Constipation, unspecified Disposition: Home Discharge Condition All VS Reviewed: Yes Condition: Improved Patient Instructions: Acute Urinary Retention in Women (ED), Constipation (ED) Additional Instructions: You have been seen in the ED for evaluation of abdominal swelling. It appears that this may have been secondary to urinary retention as your bladder was full and the abdominal swelling has improved after your bladder was drained. We will send you out with a Qiu catheter in place, however it is very important that you discuss this with your doctor at the nursing facility as they will need to look into the reason for your urinary retention and discuss removing the catheter as soon as able, as prolonged catheterization can lead to urinary tract infections. Please return to the ED immediately if you develop any worsening pain, urinary retention, problems with bowel movements, or if there is anything else of concern to you. Referrals: Ga Mills MD (PCP) Ralph Attestation Portions of this note were transcribed by Yris Vann. I, Dr. Nicholas personally performed the history, physical exam and medical decision-making; I reviewed and confirmed the accuracy of the information in the transcribed note. Signed by: Ralph Bardales, 03/01/2017 at 2400. copies to: Ga Mills MD, William B MD Mar 01, 2017 16:52 YRIS VANN Mar 01, 2017 17:45
[2017-03-01 17:40] VITALS: BP 123/70; PULSE 86; O2SAT 94
[2017-03-01 17:49] LABS: BASOPHILS % (AUTO) 0.8 % (0-3); EOSINOPHILS % (AUTO) 1.6 % (0-5); MONOCYTES % (AUTO) 8.6 % (4-12); Mean Corpuscular Hemoglobin 32.6 pg (27.0-35.0); Mean Corpuscular Volume 100.9 fL (81-100); NEUTROPHILS % (AUTO) 58.1 % (40-74); Platelet Count 374 bil/L (150-400)
[2017-03-01 18:16] LABS: Magnesium 2.8 mg/dL (1.6-2.6)
[2017-03-01] MEDS ORDERED: Lactated Ringer's 1,000 ML IV SCH (18:38)
[2017-03-01 18:40] VITALS: BP 109/76; PULSE 89; O2SAT 97
[2017-03-01 18:41] LABS: APPEARANCE,URINE CLEAR (CLEAR,HAZY); COLOR,URINE YELLOW (YELLOW); OCCULT BLOOD,URINE LARGE (NEGATIVE); UROBILINOGEN,URINE NORMAL (NORMAL)
[2017-03-01] MEDS: HYDROmorphone 1 mg/mL Inj IVPUSH ONE (19:11)
--- NOTE | 2017-03-01 19:20 | DRSVH ---
PROCEDURE: X-RAY CHEST ONE VIEW, PORTABLE ([id number]) INDICATIONS: weakness TECHNIQUE: One view of the chest was acquired. COMPARISON: [facility], CT, CT ABD PELVIS W CON, 12/22/2016, 20:40. [facility], CR, XR CHEST 1VW (PORTABLE), 02/02/2017, 19:15. FINDINGS: Surgical changes and devices: None. Lungs and pleura: No pleural effusions or pneumothorax. Lungs are clear. Diffuse scarring. Elevati on of the right hemidiaphragm Mediastinum: Mediastinal contours appear normal. Heart size is normal. Bones and chest wall: No suspicious bony lesions. Overlying soft tissues appear unremarkable. Thermostat Repairer suad appearing right rib fractures. Possible catheter projects over the upper abdomen IMPRESSION: No acute cardiopulmonary disease Dictated by: Andre Gonzales M.D. on 03/01/2017 at 19:16 Approved by: Andre Gonzales M.D. on 03/01/2017 at 19:18
[2017-03-01 21:11] VITALS: BP 108/60; PULSE 78; RESP 12; O2SAT 100
--- NOTE | 2017-03-01 21:36 | DRSVH ---
PROCEDURE: CT ABDOMEN AND PELVIS WITH CONTRAST ([id number]) INDICATIONS: worsening abd distenstion, pain; GT placement TECHNIQUE: After the administration of intravenous contrast, 5 mm thick sections acquired from the diaphragm to the symphysis. 5 mm coronal and sagittal reformats were acquired. For radiation dose reduction, the following was used: automated exposure control, adjustment of mA and/or kV according to patient siz e. COMPARISON: None. FINDINGS: Image quality: Excellent. ABDOMEN: Lung bases: Lung bases are clear. Heart size is normal. Solid organs: Mild hepatic steatosis otherwise liver and spleen are normal in size and enhancement. Gallbladder within normal limits. Biliary system is non dilated. Pancreas enhances normally. Pancre atic duct is prominent. No adrenal nodules. There is mild bilateral hydronephrosis. Renal cortical s carring/infarcts also noted. Peritoneum and bowel: There is a G-tube incidentally noted with the balloon tip in the stomach. No free fluid or air. Appendix not seen and may be surgically absent. There scattered colonic diverticu la without evidence of acute complication. Large amount of stool is seen within the rectal vault rais ing possibility of impaction Nodes and vessels: No retroperitoneal or mesenteric adenopathy by size criteria. Aorta and inferior vena cava are normal in size. Miscellaneous: No ventral hernias. PELVIS: Genitourinary: Bladder is markedly distended, measuring 16.8 x 13.5 cm. Miscellaneous: No inguinal hernias or adenopathy. Bones: No suspicious bony lesions. No vertebral body compression fractures. IMPRESSION: Severe bladder distention as above, with associated mild bilateral hydronephrosis. No specific visual ized etiology. Please correlate clinically for bladder outlet obstruction. Large amount of stool seen in the rectal vault, concerning for fecal impaction. Please correlate clin ically. Dictated by: Andre Gonzales M.D. on 03/01/2017 at 21:28 Approved by: Andre Gonzales M.D. on 03/01/2017 at 21:35
[2017-03-01] MEDS ORDERED: Sodium Biphos-Phos 133 mL Enema RECTAL ONE (21:50)
[2017-03-02 00:27] VITALS: BP 110/74; PULSE 80; RESP 11; O2SAT 100
[2017-03-02 01:01] VITALS: BP 110/74; PULSE 80; RESP 11; O2SAT 100
== END 2017-03-02 01:09 | disposition home or self-care (01) ==
LOC: EDBD 16:22 → SED 16:22
DX: R33.9 Retention of urine, unspecified (principal); K59.00 Constipation, unspecified; R53.1 Weakness; I10 Essential (primary) hypertension; F03.90 Unspecified dementia, unspecified severity, without behavioral disturbance, psychotic disturbance, mood disturbance, and anxiety; I69.828 Other speech and language deficits following other cerebrovascular disease; F31.9 Bipolar disorder, unspecified; R73.03 Prediabetes; Z79.82 Long term (current) use of aspirin
CPT/HCPCS: 36415; 51702; 71010; 74177; 80053; 81000; 83605; 83690; 83735; 85025; 93005; 96374; 99285; J1170; Q9967

== ENCOUNTER 2017-05-24 03:39 | Emergency (ER) | payer MEDICARE, MEDICAID ==
[~2017-05-24] VITALS: Ht 167.6 cm; Wt 42.9 kg
[~2017-05-24 03:39] MED LIST changes: +ACET650S24 PEG; +ASPI-973 PEG; -ASPI-973 PO; +ATEN50TA PEG; -ATEN50TA PO; +BISA10SU61 RC; -CHOL100045 PO; -CLOP75TA3 PO; -KLO1T PO; +LIP40 PEG; +LITH300T PEG; -LITH300T PO; +LORA2VIA28 PEG; -MIRT7.5T8 PO; +MULT-1018 PEG; -RISP1TAB90 PO; +SENN-133 PEG; +TRAM50TA2 PEG; -TRAM50TA2 PO; +[UNRECOGNIZED DRUG - CODE] PEG
--- NOTE | 2017-05-24 03:43 | ED.REPORT ---
HPI-General Illness Date of Service May 24, 2017 ED Provider: Kevin Clark MD A 77 year old female with a history of CVA, dementia, diverticulitis, hypertension, bipolar disorder and hypertension is brought to the ED via EMS due to aggressive behavior. The pt has been residing at [facility] for one week and has been displaying aggressive behavior per staff. She had been assaulting staff and yelling. The pt was recently diagnosed with a UTI and prescribed Macrobid. However she has continued to grab at her genitals as if she remains in pain. EMS found the pt smeared with fecal matter, which staff reports occurs frequently, and yelling at paramedics. History is limited by pt condition. Nursing Notes Stated Complaint: AGGRESSION Nursing Notes Reviewed: Yes Allergies: Coded Allergies: No Known Allergies (Verified Allergy, Unknown, 03/01/17) Scheduled Acetaminophen (Acetaminophen Liquid) 650 Mg/20 Ml Liquid 1,000 MG PEG q8hrs prn Aspirin (Aspirin) 81 Mg Tablet 81 MG PEG DAILY Atenolol (Atenolol) 50 Mg Tablet 50 MG PEG QAM Atorvastatin (Lipitor) 40 Mg Tablet 40 MG PEG DAILY Bisacodyl (Dulcolax Rectal) 10 Mg Supp.rect 10 MG RC q48 hrs [place] Carbonate ([place] Carbonate) 300 Mg Tablet.er 300 MG PEG DAILY Lorazepam (Ativan) 2 Mg/1 Ml Vial 0.25 ML PEG q8hrs prn Multivitamin (Multi Vitamin Daily) 1 Each Tablet 1 EACH PEG DAILY Nutrit Supp/Inulin/Fos/Fiber (Fibersource Hn Liquid) 0.05 Gram-1.2 Kcal/Ml Liquid 250 CC PEG 5x a day Scheduled PRN Sennosides (Senna) 8.6 Mg Tablet 8.6 MG PEG qd prn PRN PRN For Constipation Tramadol (Tramadol) 50 Mg Tablet 50 MG PEG Q6 PRN PRN For Pain General Time Seen by MD: 03:43 Chief Complaint Other (Aggressive behavior) Hx Obtained From: EMS Arrived By: Ambulance Sudden in Onset?: No Symptom Duration: Since onset Recent Healthcare: Recent doctor visit, Recent hospitalization Similar Sx Previous: No Past Medical History Past Medical History 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 12/22/2016 Ambulatory Status Independent Review of Systems Unable to Obtain ROS Patient condition Physical Exam Vital Signs Vital Signs Date Time Temp Pulse Resp B/P Pulse Ox O2 Delivery O2 Flow Rate FiO2 05/24/17 03:49 36.1 74 16 103/49 98 Room Air Initial VS: Reviewed, Vital signs normal General/Constitutional: Awake, Alert covered with feces Head / Eyes: Atraumatic, Normocephalic, PERRL, EOMI ENT: Atraumatic, Airway patent Mouth: Positive: Mucous membranes dry Neck: Atraumatic, Supple, Full range of motion Respiratory / Chest: Atraumatic, Breath sounds NL, Breath sounds = bilat, No respiratory distress Cardiovascular: Heart rate NL, Regular rhythm, Heart sounds NL Abdomen: Atraumatic, Soft, Non-tender Back: Atraumatic, Full range of motion Upper Extremities Upper Extremity / MS: Atraumatic, Full range of motion Lower Extremity / Pelvis / MS: Atraumatic, Full range of motion Skin: Color NL, Warm, Dry Neurologic: Oriented X3, No motor deficits Psychiatric: Affect NL Interpretation & Diagnostics Lab Results Interpretation Result Diagram: 05/24/17 0400 05/24/17 0400 Test 05/24/17 04:00 05/24/17 04:15 White Blood Count 12.1th/mm3 (3.8-10.1) Red Blood Count 3.15mil/mm3 (3.90-5.20) Hemoglobin 11.9g/dL (12.0-15.6) Hematocrit 36.4% (35.0-46.0) Mean Corpuscular Volume 115.6fL (81-100) Mean Corpuscular Hemoglobin 37.8pg (27.0-35.0) Mean Corpuscular Hemoglobin Concent 32.7% (32.0-37.0) Red Cell Distribution Width 14.1% (12.3-15.4) Platelet Count 509bil/L (150-400) Neutrophils (%) (Auto) 79.2% (40-74) Lymphocytes (%) (Auto) 12.0% (14-46) Monocytes (%) (Auto) 6.6% (4-12) Eosinophils (%) (Auto) 1.8% (0-5) Basophils (%) (Auto) 0.2% (0-3) Sodium Level 138mEq/L (134-144) Potassium Level 4.8mEq/L (3.5-5.2) Chloride Level 102mEq/L (97-108) Carbon Dioxide Level 26mmol/L (18-29) Blood Urea Nitrogen 20mg/dL (8-27) Creatinine 0.58mg/dL (0.57-1.00) Estimat Glomerular Filtration Rate 145mL/min (>59) Glucose Level 94mg/dL (60-99) Lactic Acid Level 1.8mmol/L (0.4-2.0) Calcium Level 10.4mg/dL (8.5-10.1) Magnesium Level 2.1mg/dL (1.6-2.6) Total Bilirubin 0.5mg/dL (0.0-1.2) Aspartate Amino Transf (AST/SGOT) 18U/L (0-50) Alanine Aminotransferase (ALT/SGPT) 20U/L (0-32) Alkaline Phosphatase 58U/L (25-165) Total Protein 7.1g/dL (6.4-8.4) Albumin 3.9g/dL (3.4-5.0) Lipase 41U/L (13-60) Urine Color Yellow (YELLOW) Urine Appearance Clear (CLEAR,HAZY) Urine pH 7.5 (5.0-8.0) Urine Specific [place] 1.010 (1.003-1.035) Urine Protein Negativemg/dL (NEG,TRACE) Urine Glucose (UA) Negativemg/dL (NEGATIVE) Urine Ketones Negativemg/dL (NEGATIVE) Urine Occult Blood Trace (NEGATIVE) Urine Nitrite Negative (NEGATIVE) Urine Bilirubin Negative (NEGATIVE) Urine Urobilinogen Normalmg/dL (NORMAL) Urine Leukocyte Esterase Moderate (NEGATIVE) Urine RBC N/hpf (0-2) Urine WBC 6-10/hpf (0-5) Urine Epithelial Cells Occasional/hpf (NONE-MOD) Urine Crystals None seen (NONE SEEN) Urine Bacteria Few/hpf (NONE-FEW) Urine Hyaline Casts None/lpf (NONE) Urine Granular Casts Occasional (NONE SEEN) Urine Waxy Casts None seen (NONE SEEN) Urine Red Blood Cell Casts None seen (NONE SEEN) Urine White Blood Cell Casts None seen (NONE SEEN) Urine Mucus None seen (None Seen) Urine Trichomonas None seen (NONE SEEN) Urine Yeast None (NONE SEEN) Urinalysis Comment None Urine Culture Reflexed Indicated Hold Urine Received (Received) Lab values outside NL range: no clinical significance. Lab Results Interpretation: Keppra level pending Re-Eval/Medical Decision Med Decision/Clinical Course 77-year-old female who is recuperating from a stroke at [facility]. She has been combative with staff. She is also been covering herself with stool. Workup was initiated for sepsis as a source of confusion. Her care will be turned over to Dr. Angela at change of shift. Source of Hx: Old records Counseled Regarding: Diagnosis, Lab results Discharge & Departure Shift Change Sign-Out Patient Care Transferred: Yes Discussed Complaint(s): Yes Laboratory Evaluation: Lab evaluation discussed Primary Impression: UTI (urinary tract infection) Urinary tract infection type: site unspecified Hematuria presence: without hematuria Qualified Code: N39.0 - Urinary tract infection, site not specified Additional Impression: Confusion Discharge Condition All VS Reviewed: Yes Condition: Stable Referrals: Ga Mills MD (PCP) Care Transferred to: Dr. Angela Care Transferred at: 06:00 Scribe Attestation Portions of this note were transcribed by Fabian Spicer. I, Dr. Clark personally performed the history, physical exam and medical decision-making; I reviewed and confirmed the accuracy of the information in the transcribed note. copies to: Ga Mills MD, Kevin Barker MD May 24, 2017 03:43 FABIAN SPICER May 24, 2017 04:09
[2017-05-24 03:49] VITALS: BP 103/49; PULSE 74; RESP 16; O2SAT 98
[2017-05-24] MEDS ORDERED: 0.9% Sodium Chloride 1,000 ML IV ONE (03:56)
[2017-05-24] MEDS ORDERED: Ondansetron 2 mg/mL 2 mL Inj IV PRN (04:00)
[2017-05-24 04:10] LABS: BASOPHILS % (AUTO) 0.2 % (0-3); EOSINOPHILS % (AUTO) 1.8 % (0-5); MONOCYTES % (AUTO) 6.6 % (4-12); Mean Corpuscular Hemoglobin 37.8 pg (27.0-35.0); Mean Corpuscular Volume 115.6 fL (81-100); NEUTROPHILS % (AUTO) 79.2 % (40-74); Platelet Count 509 bil/L (150-400)
[2017-05-24 04:32] LABS: Magnesium 2.1 mg/dL (1.6-2.6)
[2017-05-24 05:34] LABS: APPEARANCE,URINE CLEAR (CLEAR,HAZY); COLOR,URINE YELLOW (YELLOW); OCCULT BLOOD,URINE TRACE (NEGATIVE); PH,URINE 7.5 (5.0-8.0); UROBILINOGEN,URINE NORMAL (NORMAL)
[2017-05-24] MEDS ORDERED: Acetaminophen 32 mg/mL 5 mL Liquid PO ONE (06:30)
[2017-05-24] MEDS ORDERED: FLUCONAZOLE 40 MG/ML PO ONE (06:30)
[2017-05-24 08:37] VITALS: BP 143/74; PULSE 63; RESP 16; O2SAT 92
[2017-05-24] MEDS ORDERED: QUET200T PO (10:46)
[2017-05-24 11:20] VITALS: BP 109/58; PULSE 81; RESP 16; O2SAT 99
== END 2017-05-24 11:23 | disposition home or self-care (01) ==
LOC: EDBD 03:39 → SED 03:39
DX: N39.0 Urinary tract infection, site not specified (principal); B95.2 Enterococcus as the cause of diseases classified elsewhere; R41.0 Disorientation, unspecified; F31.9 Bipolar disorder, unspecified; F03.91 Unspecified dementia, unspecified severity, with behavioral disturbance; I10 Essential (primary) hypertension; Z86.73 Personal history of transient ischemic attack (TIA), and cerebral infarction without residual deficits; Z87.440 Personal history of urinary (tract) infections; B37.0 Candidal stomatitis; Z90.710 Acquired absence of both cervix and uterus; Z98.890 Other specified postprocedural states; Z79.82 Long term (current) use of aspirin
CPT/HCPCS: 36415; 80053; 80178; 81000; 83605; 83690; 83735; 85025; 87086; 87088; 87186; 96361; 96374; 99285; J2405; J7030